=== PATIENT | female | born 1945 | race Caucasian/White ===

== ENCOUNTER 2019-09-19 12:58 | Outpatient (CLI) | payer MEDICARE, SELFPAY ==
--- NOTE | 2019-09-19 13:20 | ECG_ITS ---
Measurements Intervals [place] Rate: 88 P: 54 MA: 144 QRS: 7 QRSD: 85 T: 35 QT: 335 QTc: 405 Interpretive Statements SINUS RHYTHM DELAYED PRECORDIAL R/S TRANSITION BASELINE ARTIFACT- III BORDERLINE ECG Electronically Signed On 09-19-2019 13:49:44 TRAIN RESERVATION CLERK by Yifan Madison D.O.
--- NOTE | 2019-09-21 23:43 | WPDPFTINT ---
PFT Interpretation PFT Interpretation: DOS: 09/19/2019 REQUESTING:Dr. Gusman REASON FOR TESTING: Dyspnea PULMONARY FUNCTION TESTS Results are reproducible. Spirometry: Normal FEV1, mild decreased in FVC 75% predicted, normal FEV1%. No bronchodilator was given. Lung volumes: Mild restrictive pattern with decrease in TLC 72% predeicted. No iar trapping. Increased airway resistance, Raw 189%. Diffusion: DLCO mildly decreased 63%. Flow volume loop: Late peak of the expiratory limb which may be effort dependent. IMPRESSION: Mild restrictive impairment, mild decrease in FVC which may be due to restriction. No airflow obstruction. No bronchodilator was given. Mild increase in airway resistance. Mild diffusion impairment. Restriction and diffusion impairment can be seen in interstitial lung disease or pneumonitis. Clinical correlation is advised. Deena Bravo MD
== END 2019-09-19 12:59 | disposition home or self-care (01) ==
PROVIDERS: PCP Internal Medicine; Visit Provider Internal Medicine
DX: R06.09 Other forms of dyspnea (principal); R94.2 Abnormal results of pulmonary function studies; R94.31 Abnormal electrocardiogram [ECG] [EKG]
CPT/HCPCS: 93005; 94375; 94726; 94729

== ENCOUNTER 2020-02-04 10:48 | Observation (INO) | payer MEDICARE, SELFPAY ==
[2020-02-04] VITALS (8 sets, daily range): BP systolic 136–192; BP diastolic 74–90; PULSE 51–119; RESP 14–23; TEMP 36.1–36.8; O2SAT 97–100; BMI 28.5
--- NOTE | ~2020-02-04 | CT_ITS ---
EXAMINATION: CTA brain carotid DATE: 02/04/2020 12:14 INDICATION: Diplopia and dizziness TECHNIQUE: Computed tomographic angiography (CTA) of the head was performed without and with 100 mL O mnipaque-350 intravenous contrast. CTA of the neck was performed with intravenous contrast. The dose- length product was 1697.58 mGy-cm. Maximum intensity projection and volume rendered 3D-reconstruction s were created by the technologist on a separate workstation. Automated exposure control and iterativ e reconstruction technique were employed. COMPARISON: 09/15/2011 FINDINGS: There is no acute intraparenchymal hemorrhage. No evidence of mass lesion. No evidence of acute infar ction. There is mild periventricular and subcortical hypodensity probably related to small vessel isc hemic disease. There is mild prominence of the sulci and ventricles related to cerebral atrophy. Intr acranial calcified cerebral atherosclerosis is noted. There are no extra-axial collections. There is no mass effect or midline shift. The orbits and soft tissues are unremarkable. The visualized sinuse s and mastoid air cells are well aerated. The right vertebral artery is diminutive. There is no significant stenosis of the basilar artery or p osterior cerebral arteries. There is no significant stenosis of the intracranial internal carotid art eries or the anterior or middle cerebral arteries. The anterior communicating artery and posterior co mmunicating arteries are normal. There is no aneurysm. NECK CTA: The thyroid gland is unremarkable. The submandibular and parotid glands are symmetric. Ther e is no lymphadenopathy. There are no masses identified. The airway is unremarkable. There are no oss eous abnormalities. The orbits are unremarkable. The superior mediastinum is unremarkable. Areas of a ir-trapping in the visualized lung apices may reflect small airways or small vessel disease. There is mild cervical spondylosis. There is 0% stenosis of the proximal right internal carotid artery relative to normal distal artery l umen diameter (NASCET criteria). There is 0% stenosis of the proximal left internal carotid artery re lative to normal distal artery lumen diameter. IMPRESSION: 1. No acute intracranial abnormality. Normal head CTA. 2. 0% stenosis of the proximal right internal carotid artery relative to normal distal artery lumen d iameter (NASCET criteria). 3. 0% stenosis of the proximal left internal carotid artery relative to normal distal artery lumen di ameter. Reviewed, dictated and finalized at location A. IMPRESSION: 1. No acute intracranial abnormality. Normal head CTA. 2. 0% stenosis of the proximal right internal carotid artery relative to normal distal artery lumen diameter (NASCET criteria). 3. 0% stenosis of the proximal left internal carotid artery relative to normal distal artery lumen diameter.
--- NOTE | ~2020-02-04 | CT_ITS ---
EXAMINATION: CT brain wo con DATE: 02/04/2020 18:53 INDICATION: Dizziness. TECHNIQUE: Computed tomography (CT) of the head was performed without intravenous contrast. The mA wa s adjusted according to patient size. Iterative reconstruction technique was employed. The dose-lengt h product was 605.33 mGy-cm. COMPARISON: Head CTA 02/04/2020 FINDINGS: There are scattered areas of low attenuation in the cerebral white matter. There is no int racranial hemorrhage, acute infarction, or abnormal intracranial mass lesion. The ventricles are norm al in size. There are likely changes of ocular lens replacement surgeries. There is mild mucosal thic kening in right ethmoid sinus. There is a small right mastoid effusion. IMPRESSION: 1. Mild nonspecific cerebral white matter disease, which likely represents chronic small vessel ische froilan disease. Reviewed, dictated and finalized at location A. IMPRESSION: 1. 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
--- NOTE | ~2020-02-04 | MR_ITS ---
EXAMINATION: MR brain/brain stem wo/w con DATE: 02/05/2020 07:54 INDICATION: Diplopia. Dizziness. Stroke. TECHNIQUE: Magnetic resonance imaging (MRI) of the brain and brainstem was performed without and with 14 mL MultiHance intravenous contrast. Sequences included sagittal and axial T1-weighted FSE, axial diffusion-weighted FS EPI, axial T2*-weighted GRE, axial T2-weighted FLAIR Propeller, and axial T2-we ighted Propeller. Postcontrast sequences included axial and coronal T1-weighted FSE. Apparent diffusi on coefficient (ADC) maps were created. COMPARISON: Head CT 02/04/2020 FINDINGS: There are scattered areas of nonspecific increased T2-weighted signal intensity in the cere bral white matter and jc. There is no intracranial hemorrhage, acute infarction, or abnormal intrac ranial mass lesion. The ventricles are normal in size. There are likely changes of ocular lens replac ement surgeries. The paranasal sinuses are clear. There is a small right mastoid effusion. IMPRESSION: 1. Mild nonspecific cerebral white matter disease and pontine disease, which likely represents chroni c small vessel ischemic disease. Reviewed, dictated and finalized at location A. IMPRESSION: 1. Mild nonspecific cerebral white matter disease and pontine disease, which jesus reid represents chronic small vessel ischemic disease.
[2020-02-04 11:37] LABS: Basophils Absolute Auto 0.1 K/mm3 (0.0-0.1); Basophils Percent Auto 1.2 % (0.2-1.2); Eosinophils Absolute Auto 0.2 K/mm3 (0-0.3); Eosinophils Percent Auto 3.9 % (0-4.4); Hemoglobin 15.6 g/dL (12.0-15.0); Immature Granulocyte Absolute 0.01 K/mm3 (0.00-0.031); Immature Granulocyte Percent A 0.2 % (0-0.5); Lymphocytes Absolute Auto 1.94 K/mm3 (0.9-3.2); Mean Corpuscular HGB Conc 34.7 g/dl (32-36); Mean Corpuscular Hemoglobin 32.6 pg (26-34); Mean Corpuscular Volume 94.1 fl (80-100); Monocytes Absolute Auto 0.9 K/mm3 (0.1-0.6); Monocytes Percent Auto 15.6 % (2.6-8.5); Neutrophils Absolute Auto 2.7 K/mm3 (1.3-6.7); Neutrophils Percent Auto 46.1 % (45.5-73.1); Platelet Count Result 332 k/mm3 (150-375); Red Blood Count 4.78 M/mm3 (4.2-5.4); Red Cell Distribution Width 12.2 % (11.5-14.5); White Blood Count 5.9 K/mm3 (4.5-10.0)
--- NOTE | 2020-02-04 11:38 | ECG_ITS ---
Measurements Intervals [place] Rate: 85 P: 57 [place]: 148 QRS: 9 QRSD: 85 T: 35 QT: 355 QTc: 423 Interpretive Statements SINUS RHYTHM ATRIAL PREMATURE COMPLEX POSSIBLE LEFT ATRIAL ENLARGEMENT BORDERLINE ECG Electronically Signed On 02-04-2020 14:11:58 CDT by Yifan Madison D.O.
--- NOTE | 2020-02-04 11:39 | ED.NEUROSD ---
HPI - Neuro Symptoms/Deficit General Chief Complaint: Neuro Symptoms/Deficit Stated Complaint: double vision since last night Time Seen by Provider: 02/04/20 11:24 Source: patient Mode of arrival: wheelchair Limitations: no limitations History of Present Illness HPI Narrative: Patient is a 74-year-old female who presents for evaluation of double vision, dizziness and difficulty walking. Patient reports she has had a headache over the past 5 days, the dizziness and the vision changes began yesterday. Patient states she had no thunderclap sensation, headache was dull and aching in nature, and suddenly the patient stated her vision became very blurry yesterday. She states she is seeing double of most objects. She denies any numbness in her face, difficulty with speech, arm weakness or numbness, leg weakness or numbness. She reports she is having difficulty walking due to her vision changes. No floaters or flashers. No recent trauma. Patient has no history of stroke. She does not take any anticoagulation. Related Data Home Medications Medication Instructions Recorded Confirmed aspirin 81 mg tablet,delayed 81 mg PO DAILY 08/15/19 release cholecalciferol (vitamin D3) 25 1,000 unit PO DAILY 08/15/19 mcg (1,000 unit) tablet estradiol-norethindrone acet 1 1 tablet PO DAILY 08/15/19 mg-0.5 mg tablet lisinopril 20 mg tablet 20 mg PO DAILY 08/15/19 loratadine 10 mg tablet 10 mg PO DAILY 08/15/19 mometasone 0.1 % topical cream 1 applic TOPICAL DAILY 08/15/19 hdjjasms-narvru-XS-thonzonm 3.3 4 drop EACH EAR QID 08/15/19 mg-3 mg-10 mg-0.5 mg/mL ear drops,susp nystatin 100,000 unit/gram topical 1 applic TOPICAL BID 08/15/19 powder omega cap PO 08/15/19 6-irgL-nngdmabw-azk-rgaow-vmh-lipase 40 mg-60 mg-10 unit capsule pantoprazole 40 mg tablet,delayed 40 mg PO QAM 08/15/19 release sucralfate 1 gram tablet PO 08/15/19 thiamine HCl (vitamin B1) 250 mg 250 mg PO DAILY 08/15/19 tablet tramadol 50 mg tablet 50 mg PO Q6H PRN 01/27/20 vitamin B complex 1 tablet PO DAILY 08/15/19 Allergies Allergy/AdvReac Type Severity Reaction Status Date / Time allopurinol Allergy Unknown Unknown Verified 02/04/20 11:49 carbamazepine Allergy Unknown Unknown Verified 02/04/20 11:49 cephalexin Allergy Unknown Unknown Verified 02/04/20 11:49 clotrimazole Allergy Unknown Unknown Verified 02/04/20 11:49 codeine Allergy Unknown Unknown Verified 02/04/20 11:49 doxycycline Allergy Unknown Unknown Verified 02/04/20 11:49 febuxostat Allergy Unknown Unknown Verified 02/04/20 11:49 loracarbef Allergy Unknown Unknown Verified 02/04/20 11:49 meperidine Allergy Unknown Unknown Verified 02/04/20 11:49 Penicillins Allergy Unknown Unknown Verified 02/04/20 11:49 Sulfa (Sulfonamide Allergy Unknown Unknown Verified 02/04/20 11:49 Antibiotics) tetracycline Allergy Unknown Unknown Verified 02/04/20 11:49 Tetracyclines Allergy Unknown Unknown Verified 02/04/20 11:49 Review of Systems Review of Systems: Narrative: CONSTITUTIONAL: Denies fever HEENT: Reports double vision, no tinnitus CARDIOVASCULAR: Denies chest pain RESPIRATORY: Denies cough or dyspnea. GASTROINTESTINAL: Denies abdominal pain SKIN: Denies rash MUSCULOSKELETAL: Denies back pain NEUROLOGIC: Reports mild headache, denies numbness or weakness, reports difficulty with ambulation PMFSH Family History Family History Mother Patient's mother is Cerebrovascular accident Father Patient's father is Sibling Hypertension Family history of diabetes mellitus in first degree relative Social History Social History Smoking status: Former smoker Second hand tobacco smoke exposure: No Smoking end date: 07/20/77 Alcohol intake: current Exam Narrative: Exam Narrative: GENERAL: Awake, alert, conversant HEAD: Normocephalic, at
[2020-02-04 11:47] LABS: INR 1.1; Prothrombin Time 13.4 Seconds (11.1-14.7)
[2020-02-04 11:48] LABS: Blood Urea Nitrogen 15 mg/dL (7-17); Calcium 9.1 mg/dL (8.4-10.2); Carbon Dioxide 26 mmol/L (22-30); Chloride 96 mmol/L (98-107); Estimated CRCL calculation 42 ml/min; Estimated Glomerular Filt Rate > 60; Glucose 121 mg/dL (65-105); Partial Thromboplastin Time 26.3 SECONDS (22.3-36.8); Potassium 4.4 mmol/L (3.4-5.0); Sodium 130 mmol/L (137-145)
[2020-02-04 12:00] LABS: Troponin I < 0.012 ng/mL (0.000-0.034)
[2020-02-04] MEDS: SODIUM CHLORIDE 0.9% IV 500 ML 999 ML IV CONT (13:06)
--- NOTE | 2020-02-04 14:03 | ADMGEN ---
This patient, Marisabel Beck, was admitted to 2 Medical Room 248-. Patient/family oriented to hospital policies and general routines including ID bracelet, bed and alarms, visiting hours, pain management, procedures, bathroom and other care routines, personal items, smoking policy, room service/diet, and visiting hours. Valuables list has been completed. Information on how to activate the Rapid Response Team has been discussed. Patient/Family are encouraged to report perceived risks to care and to ask questions if they do not understand what they are told or what they should do.
[2020-02-04] MEDS: clonazePAM 0.5 MG TABLET PO (16:30)
--- NOTE | 2020-02-04 16:34 | PC.NURSE ---
Patient c/o worsening blurred vision and double vision. States it seems more blurred than previously. Called Janie Chaney POLISHER HAND and notified her of patient complaints. She states she will come to assess the patient shortly.
--- NOTE | 2020-02-04 17:42 | PM.IMHP ---
H&P: HPI History of Present Illness Chief complaint: dizziness,vision changes Narrative: Marisabel Beck is a 74 year old female who has a history of having high anxiety. She has had no previous history is CVA. The patient stated that she has had a terrible headache for 5 days. Patient started having double vision last night.Was having some what she called dizziness but she stated this more like difficulty walking because of the blurred vision or double vision. She did have any focal weakness or any other symptoms she has no difficulty swallowing she is able to move all extremities. Her speech is clear. The patient stated that the last time she had her eyes examined was back in July. She stated that for several months she had high pressure in her eyes but has been stable so she is down to once a year getting her eyes checked. The patient did not have any numbness or tingling in her face no focal weakness. She was having difficulty walking due to the double vision. The patient tells me that she feels like her double vision is getting worse. Her double vision is making her feel ill. The patient had a CTA of her brain was normal CT a. She had 0% stenosis of the proximal right internal and left internal carotid arteries. Patient stated that she feels she is getting worse. Neurology has been consulted. She takes a daily aspirin but did not take it today. And IV fluids. Patient was very anxious when she came to the floor so I ordered her her home clonazepam. The daughters at the bedside. I have a call out to Neurology to speak with them. Date of service 02/04/2020 Review of Systems Review of Systems: All systems reviewed & are unremarkable except as noted in HPI and below Constitutional: Constitutional: Reports as per HPI and Reports no additional constitutional complaints Eyes: Eyes: Reports as per HPI and Reports no additional eye complaints ENT: Reports system reviewed and no additional complaints, except as documented and Reports Normal hearing present Cardiovascular: Cardiovascular: Reports no additional cardiovascular complaints Respiratory: Respiratory: Reports no additional respiratory complaints and Reports no additional respiratory complaints Gastrointestinal: Gastrointestinal: Reports as per HPI and Reports no additional gastrointestinal complaints Musculoskeletal: Musculoskeletal: Reports no additional musculoskeletal complaints Integumentary/Breasts: Skin/Breast: Reports system reviewed and no additional complaints, except as docu and Reports as per HPI Neurologic: Reports system reviewed and no additional complaints, except as documented, Reports as per HPI and Reports Normal hearing present Psychiatric: Psychiatric: Reports no additional psychiatric complaints and Reports as per HPI Endocrine: Endocrine: Reports no additional endocrine complaints Hematologic/Lymphatic: Hematologic/Lymphatic: Reports no additional hematologic/lymphatic complaints Allergic/Immunologic: Allergic/Immunologic: Reports no additional allergic/immunologic complaints [facility] Past Medical History Medical History (Updated 02/04/20 @ 17:54 by Janie Chaney NP) Anxiety disorder, unspecified Chronic GERD Diverticular disease ROMEO (dyspnea on exertion) Elevated LFTs Essential (primary) hypertension Gastro-esophageal reflux disease without esophagitis Gout, unspecified Allergic to most gout medicine and can only take steroids. Hyperglycemia Other fatigue Pure hypercholesterolemia, unspecified PVC's (premature ventricular contractions) Surgical History Surgical History (Updated 02/04/20 @ 17:54 by Janie Chaney NP) H/O cataract extraction Bilaterally H/O: hysterectomy Total vaginal hysterectomy History of removal of pigmented skin lesion Hx of cholecystectomy S/P tonsillectomy and adenoidectomy Family History Family History (Updated 02/04/20 @ 17:56 by Janie Chaney NP) Mother Patient's mother is Cereb
[2020-02-04] MEDS: ASPIRIN 81 MG ENTERIC TABLET PO (19:33)
[2020-02-04] MEDS: lisinopriL 10 MG TABLET 30 MG PO (21:32)
[2020-02-04] MEDS: CHOLECALCIFEROL 1,000 UNIT TABLET 1000 UNITS PO (21:32)
[2020-02-04] MEDS: clonazePAM 0.5 MG TABLET 1 MG PO (21:33)
[2020-02-05] VITALS (9 sets, daily range): BP systolic 120–136; BP diastolic 59–66; PULSE 76–102; RESP 16; TEMP 36–36.4; O2SAT 94–98
[2020-02-05] MEDS: ACETAMINOPHEN 325 MG TABLET 650 MG PO (02:53)
[2020-02-05 05:06] LABS: Basophils Absolute Auto 0.1 K/mm3 (0.0-0.1); Basophils Percent Auto 1.2 % (0.2-1.2); Eosinophils Absolute Auto 0.2 K/mm3 (0-0.3); Eosinophils Percent Auto 3.4 % (0-4.4); Hematocrit 39.7 % (37.0-47.0); Hemoglobin 13.9 g/dL (12.0-15.0); Immature Granulocyte Absolute 0.01 K/mm3 (0.00-0.031); Immature Granulocyte Percent A 0.2 % (0-0.5); Lymphocytes Absolute Auto 1.75 K/mm3 (0.9-3.2); Lymphocytes Percent Auto 26.9 % (18.3-44.2); Mean Corpuscular Volume 91.5 fl (80-100); Mean Platelet Volume 8.9 fl (7.4-10.4); Monocytes Absolute Auto 1.1 K/mm3 (0.1-0.6); Monocytes Percent Auto 17.4 % (2.6-8.5); Neutrophils Absolute Auto 3.3 K/mm3 (1.3-6.7); Neutrophils Percent Auto 50.9 % (45.5-73.1); Platelet Count Result 351 k/mm3 (150-375); Red Blood Count 4.34 M/mm3 (4.2-5.4); Red Cell Distribution Width 11.8 % (11.5-14.5); White Blood Count 6.5 K/mm3 (4.5-10.0)
[2020-02-05 05:15] LABS: Prothrombin Time 13.3 Seconds (11.1-14.7)
[2020-02-05 05:38] LABS: Alanine Aminotransferase 40 U/L (4-35); Albumin Level 3.8 g/dL (3.5-5.1); Alkaline Phosphatase 73 U/L (38-126); Aspartate Amino Transferase 38 U/L (14-36); Bilirubin,Total 0.4 mg/dL (0.2-1.3); Blood Urea Nitrogen 14 mg/dL (7-17); CRP 1.1 mg/dL (<1.0); Calcium 8.8 mg/dL (8.4-10.2); Carbon Dioxide 25 mmol/L (22-30); Chloride 98 mmol/L (98-107); Estimated CRCL calculation 43 ml/min; Estimated Glomerular Filt Rate > 60; Glucose 116 mg/dL (65-105); Magnesium 2.1 mg/dL (1.6-2.3); Potassium 4.2 mmol/L (3.4-5.0); Sodium 131 mmol/L (137-145)
[2020-02-05 07:37] LABS: Free T4 Free Thyroxine Reflex 1.13 ng/dL (0.78-2.19)
[2020-02-05 08:56] LABS: Total Triiodothyronine (T3) 1.47 NG/ML (0.97-1.69)
--- NOTE | 2020-02-05 11:23 | PC.NURSE ---
Patient resting in bed. Continues to wear eye gauze to patch left eye. States with patch on, she can see one of everything but without it she has blurred vision and double vision. She feels it is unchanged since yesterday. Patient went down for MRI early this morning. Daughter Kaci is here at bedside. Dr. Chu to see patient in consultation today. Ambulated patient to bathroom several times. Gait steadier today - with eye patch in place. Patient denies dizziness or nausea. No other neurological deficits noted.
--- NOTE | 2020-02-05 12:00 | PC.NURSE ---
Family and patient voicing concern over MRI results and neurology consult and when MRI will be read and neurologist will be here. Called MRI - they state the radiologist who reads the neuro MRIs will be here at 1500 today but films are available for Dr. Chu to review. Called Dr. Chu and notified him of same. He states he will review the films and be in shortly to see patient. Relayed all information to family and patient.
--- NOTE | 2020-02-05 14:33 | PM.IMPN ---
Progress Note: A&P Assessment and Plan (1) Diplopia: Code(s): H53.2 - Diplopia Status: Acute Assessment and Plan: MRI is pending, CTA is negative, could all be related to blood sugar with with lateral rectus muscle palsy, and will check A1c No evidence of any infection or rashes (2) Dizziness: Code(s): R42 - Dizziness and giddiness Status: Acute Assessment and Plan: Dizziness secondary primarily to the double vision incurred with the 6 nerve palsy. Relieved when affected eye is patched (3) Diverticular disease: Code(s): K57.90 - Diverticulosis of intestine, part unspecified, without perforation or abscess without bleeding Status: Chronic Assessment and Plan: Patient is not currently having any problems at this time. But she has chronic diarrhea. She has seen Dr. holguin in the past. (4) Anxiety disorder, unspecified: Code(s): F41.9 - Anxiety disorder, unspecified Status: Acute Assessment and Plan: The patient is on high doses of clonazepam but this is what she takes at home. She is a very anxious person. She will need to take clonazepam prior to her MRI. I talked about Ativan but she states that she is so sensitive to medication that she prefers to keep the clonazepam. (5) Gout, unspecified: Code(s): M10.9 - Gout, unspecified Status: Acute Assessment and Plan: The patient has multiple allergies to multiple medications for gout in which she has a flare-up she is prescribed prednisone but is not having a current flare-up at this time. (6) Elevated LFTs: Code(s): R94.5 - Abnormal results of liver function studies Status: Acute Assessment and Plan: Has had mild LFT elevation for at least 2 years per previous labs. Check hepatitis profile (7) Hyperglycemia: Code(s): R73.9 - Hyperglycemia, unspecified Status: Acute Assessment and Plan: Blood sugar been slightly elevated for couple years also. Will check A1c Increase activity Subjective Date/time seen: 02/05/20 14:33 Interval history: Date of visit 02/04. 74-year-old hypertensive white female admitted with double vision and trouble with balance. Still having some double vision today but better when patch the right eye. No actual balance issues just problem with a double vision. Exam Narrative: Exam Narrative: Blood pressure 126/60 pulse is 86 and regular saturating 94% on room air afebrile Pupils equal reactive to light sclera anicteric Mouth normal Lungs clear CV regular rate rhythm no murmurs Abdomen is soft nontender Extremities without edema distal pulses are 2+ Neuro Finger to nose is intact, [id number] is intact. Flexor responses are downgoing, cranial nerve 6, LR 6 affected because cannot track right eye past midline to the right Integument no rashes or open areas Objective Data Vital Signs Vital Signs: Vital Signs - 24 hr 02/04/20 15:45 02/04/20 16:00 02/04/20 20:00 Temperature Pulse Rate 105 H 86 Respiratory Rate Blood Pressure 148/80 H Pulse Oximetry 02/04/20 21:55 02/05/20 00:00 02/05/20 04:00 Temperature 36.6 C Pulse Rate 51 L 102 H 96 Respiratory Rate 16 Blood Pressure 162/74 H Pulse Oximetry 98 02/05/20 05:42 02/05/20 08:00 02/05/20 12:00 Temperature 36.3 C L Pulse Rate 76 86 84 Respiratory Rate 16 Blood Pressure 120/66 Pulse Oximetry 97 02/05/20 14:00 Temperature 36.0 C L Pulse Rate 87 Respiratory Rate 16 Blood Pressure 126/59 L Pulse Oximetry 94 Intake/Output Intake/Output: Intake & Output 02/02/20 02/03/20 02/04/20 02/05/20 23:59 23:59 23:59 23:59 Intake Total 800 1070 Output Total 450 1600 Balance 350 -530 Meds/Results Medications: Active Medications Generic Name Dose Route Start Last Admin Trade Name Kari PRN Reason Stop Dose Admin Acetaminophen 650 mg 02/04/20 13:02 02/05/20 02:53 Tylenol Tablet PO 650 mg Q4H PRN
--- NOTE | 2020-02-05 14:55 | PCOTNOTE ---
Spoke with RN, family, and patient and at this time she is functioning at baseline except for double vision. No OT/PT evaluation recommended at this time. MD notified and agrees.
--- NOTE | 2020-02-05 15:02 | PCPTNOTE ---
PT/OT orders received...seen first by OT, and patient was INDEP with bed mob, transfers, and gait...neither patient nor family desire skilled Therapy... informed and agrees to d/c PT/OT
--- NOTE | 2020-02-05 15:07 | PC.NURSE ---
Called MRI results to Dr. Chu. Dr. Chu states patient/family can be told MRI is negative and he will see patient again tomorrow regarding followup and any further testing needed. Called MRI results to Dr. Lawson. He states he will come down and speak to the patient and her daughter about further tests to be done and plan of care. Patient and daughter notified of plan and daughter will stay until patient is seen by Dr. Lawson again this afternoon.
--- NOTE | 2020-02-05 17:56 | CONS_ITS ---
DATE OF CONSULTATION: Patient of Dr. Sarah Katz. A 74-year-old right-handed female has been admitted to [facility] through the emergency room for the complaint of dizziness with the visual changes. The patient started having trouble in vision described as double along with the dizziness in addition to the trouble in walking, but no difficulties in swallowing. Able to move all the 4 extremities. She reported that she has increased pressure in her eyes and she has had the eyes examined previously, but she gave no history of associated tingling or numbness or weakness of 1 side or other side though she was having difficulties in walking with a double vision. Initially in the emergency room, CTA was done of the brain which was negative with 0% stenosis of proximal right internal and left internal carotid artery. In the past, the patient had ongoing history of anxiety, chronic GERD, diverticular disease, dyspnea on exertion, elevated liver enzymes, hypertension, gout, hyperglycemia, generalized fatigue, hypercholesterolemia, and PVCs. She has undergone cataract extraction, hysterectomy, removal of pigmented skin lesion, cholecystectomy, tonsillectomy and adenoidectomy. She is a full code status. SOCIAL HISTORY: Had smoked for 15 years, 7.5 zero-pack years, but former at this particular time, and drank alcohol at least 14 per week. MEDICATIONS: She is on aspirin, cholecalciferol, lisinopril, loratadine, clonazepam. ALLERGIES: SHE IS ALLERGIC TO MULTIPLE MEDICATIONS, WHICH WERE MENTIONED LORACARBEF, MEPERIDINE, CARBAMAZEPINE, CODEINE, PENICILLIN, ALLOPURINOL, CEPHALEXIN, CLOTRIMAZOLE, DOXYCYCLINE, FEBUXOSTAT, SULFA, AND TETRACYCLINES. PHYSICAL EXAMINATION: VITAL SIGNS: Evaluation up until now has revealed her to be afebrile with temp of 36.1, pulse 93, respirations 14, blood pressure 192/74. GENERAL: General physical examination is normal. HEENT: Head normocephalic with no cranial bruit. Ear, nose, throat examination normal. NECK: Supple with no cervical bruit. No thyromegaly. No lymphadenopathy. HEART: Regular. LUNGS: Clear with no murmur. ABDOMEN: Soft with normal bowel sounds. Not tender. NEUROLOGICAL: She is awake, alert. Pupils round, regular. [place] of vision full. Extraocular movements full. Face symmetrical. Tongue midline. Motor examination revealed her to have no drift of 1 side or other side. The only thing noted initially on examination was complaint of diplopia with nystagmus bilaterally in the left lateral gaze and vertical gaze. CT scan of the head negative. CTA is negative. MRI of the brain awaited. At this stage, the patient is receiving aspirin 81 mg daily, lisinopril 30 mg at bedtime, vitamin D 1000 units in addition to the p.r.n. medication of clonazepam and Zofran. PLAN: Plan is to get the MRI and further recommendation accordingly to rule out the possibility of brainstem dysfunction. SHAILESH BARAKAT M.D. GAUGER DELIVERY GAUGER DELIVERY D I MT: [place]
--- NOTE | 2020-02-05 18:34 | PC.NURSE ---
Ambulated patient in [place]. Eye patch has been switched to right eye. Patient is steady on her feet. Ambulates without difficulty. Ambulated around entire floor without difficulty. Standby assist and patient was independent with ambulation. Fall risk evaluated. Standard fall precautions initiated.
[2020-02-05] MEDS: lisinopriL 10 MG TABLET 30 MG PO (20:59)
[2020-02-05] MEDS: clonazePAM 0.5 MG TABLET 1 MG PO (20:59)
[2020-02-05] MEDS: CHOLECALCIFEROL 1,000 UNIT TABLET 1000 UNITS PO (20:59)
[2020-02-06] VITALS: PULSE 87
[2020-02-06 04:00] VITALS: PULSE 79
[2020-02-06 05:27] LABS: Alanine Aminotransferase 39 U/L (4-35); Albumin Level 3.6 g/dL (3.5-5.1); Alkaline Phosphatase 65 U/L (38-126); Aspartate Amino Transferase 34 U/L (14-36); Bilirubin,Total 0.4 mg/dL (0.2-1.3); Blood Urea Nitrogen 15 mg/dL (7-17); Calcium 8.8 mg/dL (8.4-10.2); Carbon Dioxide 25 mmol/L (22-30); Chloride 101 mmol/L (98-107); Estimated CRCL calculation 43 ml/min; Estimated Glomerular Filt Rate > 60; Glucose 115 mg/dL (65-105); Potassium 3.9 mmol/L (3.4-5.0); Sodium 132 mmol/L (137-145)
[2020-02-06 05:29] LABS: Hemoglobin A1C 5.6 % (<5.7)
[2020-02-06 05:49] LABS: Erythrocyte Sedimentation Rate 30 mm/hr (0-20); T4 Thyroxine 9.45 ug/dL (5.53-11.0)
[2020-02-06 06:00] VITALS: BP 143/72; PULSE 87; RESP 16; TEMP 36.1; O2SAT 97
[2020-02-06 06:05] LABS: Hepatitis B Surface Antigen Negative (Negative)
[2020-02-06 06:10] LABS: HAV RESULT Negative (Negative); Hepatitis B Core IgM Result Negative (Negative)
[2020-02-06 06:22] LABS: Hepatitis C Virus Antibody Negative (Negative)
[2020-02-06] MEDS: ACETAMINOPHEN 325 MG TABLET 650 MG PO (07:30)
[2020-02-06 08:00] VITALS: PULSE 98
--- NOTE | 2020-02-06 10:43 | WPDNEUROPN ---
Progress Note: A&P Assessment and Plan (1) Diverticular disease: Code(s): K57.90 - Diverticulosis of intestine, part unspecified, without perforation or abscess without bleeding Status: Chronic (2) Diplopia: Code(s): H53.2 - Diplopia Status: Acute (3) Change in vision: Code(s): H53.9 - Unspecified visual disturbance Status: Acute (4) Dizziness: Code(s): R42 - Dizziness and giddiness Status: Acute (5) ROMEO (dyspnea on exertion): Code(s): R06.09 - Other forms of dyspnea Status: Acute (6) Pure hypercholesterolemia, unspecified: Code(s): E78.00 - Pure hypercholesterolemia, unspecified Status: Acute (7) Other fatigue: Code(s): R53.83 - Other fatigue Status: Acute (8) Elevated LFTs: Code(s): R94.5 - Abnormal results of liver function studies Status: Acute (9) Hyperglycemia: Code(s): R73.9 - Hyperglycemia, unspecified Status: Acute (10) Gout, unspecified: Code(s): M10.9 - Gout, unspecified Status: Acute (11) Gastro-esophageal reflux disease without esophagitis: Code(s): K21.9 - Gastro-esophageal reflux disease without esophagitis Status: Acute (12) Essential (primary) hypertension: Code(s): I10 - Essential (primary) hypertension Status: Acute (13) Anxiety disorder, unspecified: Code(s): F41.9 - Anxiety disorder, unspecified Status: Acute (14) PVC's (premature ventricular contractions): Code(s): I49.3 - Ventricular premature depolarization Status: Acute (15) Abducens (sixth) nerve palsy: Code(s): H49.20 - Sixth [abducent] nerve palsy, unspecified eye Status: Acute Additional Plan home with follow up Review of Systems Review of Systems: All systems reviewed & are unremarkable except as noted in HPI and below Exam Const: General: cooperative, healthy appearing, comfortable, no acute distress and awake Nutritional Appearance: average body habitus and well nourished Orientation/consciousness: patient oriented x3 HENMT: Head: normal to inspection General nose exam: No nasal discharge present Face and sinus: normal facial exam Mouth: Yes Normal oral and palatal mucosa present Eyes: General: appearance normal, both eyes and all related structures Visual Hidalgo: normal visual hidalgo by confrontation Alignment and Position: alignment abnormal and position abnormal Periorbital: periorbital findings normal Eyelids: eyelids normal Conjunctivae: conjunctivae normal Sclera: sclerae normal Cornea: corneas normal Pupils: Equal, round and reactive pupils present EOM: EOM abnormal Direct Ophthalmoscopy: normal light reflex Neck: Neck: full ROM and no lymphadenopathy Resp: Effort & Inspection: normal respiratory effort Auscultation: clear to auscultation bilaterally Cardio: Rate: regular rate Rhythm: regular rhythm GI: Auscultation: normal bowel sounds Skin: General skin exam: no rashes or lesions noted Neuro: General: patient oriented x3, gait normal, moves all extremities and no focal motor deficits Cranial nerves: Yes CN's II-XII intact bilaterally Cognition (Neuro): normal cognition Speech: normal speech Gait exam (Neuro): Normal gait present Motor exam (neuro): 5/5 motor strength present throughout Extrem: General: normal to inspection Psych: Appearance: grossly normal Objective Data Vital Signs Vital Signs: Vital Signs - 24 hr 02/05/20 12:00 02/05/20 14:00 02/05/20 16:00 Temperature 36.0 C L Pulse Rate 84 87 88 Respiratory Rate 16 Blood Pressure 126/59 L Pulse Oximetry 94 02/05/20 20:00 02/05/20 21:43 02/06/20 00:00 Temperature 36.4 C Pulse Rate 84 84 87 Respiratory Rate 16 16 Blood Pressure 136/62 Pulse Oximetry 98 98 02/06/20 04:00 02/06/20 06:00 Temperature 36.1 C L Pulse Rate 79 87 Respiratory Rate 16 Blood Pressure 143/72 H Pulse Oximetry 97 Intake/Output Int
--- NOTE | 2020-02-09 12:46 | PM.DS ---
DS: Admitting Diagnosis Admitting Diagnosis Admitting Diagnosis: Diplopia DS: Discharge Diagnosis Discharge Diagnosis (1) Diplopia: Code(s): H53.2 - Diplopia Status: Acute Assessment and Plan: MRI is negative, CTA is negative, A1c 5.6 with ESR only 30 prob idopathic 6th nerve palsy with LR muscle dysfuntion. Seen by neurology and patch applied to affected eye No evidence of any infection or rashes (2) Dizziness: Code(s): R42 - Dizziness and giddiness Status: Acute Assessment and Plan: Dizziness secondary primarily to the double vision incurred with the 6 nerve palsy. Relieved when affected eye is patched (3) Diverticular disease: Code(s): K57.90 - Diverticulosis of intestine, part unspecified, without perforation or abscess without bleeding Status: Chronic Assessment and Plan: Patient is not currently having any problems at this time. But she has chronic diarrhea. She has seen Dr. holguin in the past. (4) Anxiety disorder, unspecified: Code(s): F41.9 - Anxiety disorder, unspecified Status: Acute Assessment and Plan: The patient is on high doses of clonazepam but this is what she takes at home. She is a very anxious person. . (5) Gout, unspecified: Code(s): M10.9 - Gout, unspecified Status: Acute Assessment and Plan: The patient has multiple allergies to multiple medications for gout in which she has a flare-up she is prescribed prednisone but is not having a current flare-up at this time. (6) Elevated LFTs: Code(s): R94.5 - Abnormal results of liver function studies Status: Acute Assessment and Plan: Has had mild LFT elevation for at least 2 years per previous labs. hepatitis profile negative and probable fatty infiltration to be followed by primary (7) Hyperglycemia: Code(s): R73.9 - Hyperglycemia, unspecified Status: Acute Assessment and Plan: Blood sugar been slightly elevated for couple years also. but check A1c only 5.6 (8) Essential (primary) hypertension: Code(s): I10 - Essential (primary) hypertension Status: Acute Assessment and Plan: will controlled with the lisinopril and will continue the same DS: Summary Hospital Course Hospital Course: 74-year-old hypertensive female admitted with problems with balance and double vision. She had no cerebellar signs on examination and found to have a 6 nerve palsy. CTA and MRI were normal as was hemoglobin A1c 5.6 and sed rate of only 30. Patient was seen by Neurology and patch applied to right eye and much of symptomatology improved. she will follow-up with primary and Neurology activity as tolerated with no driving on discharge Time Spent with Patient Time attestation: Total time spent providing and/or coordinating discharge services:35 minutes Exam Narrative: Exam Narrative: Condition on discharge blood pressure 142/72 pulse 86 saturating 97% on room air pupils equal reactive to light but right high will track only minimal past the midline to the right otherwise cranial nerves are intact lungs clear CV regular rate rhythm no murmurs extremities without edema distal pulses 2+ neuro up and about ambulating without assistance and functioning well with right eye patched Discharge Plan Discharge Attending physician on discharge: Kyle Lawson Consulting providers: Mathew Chu ; Janie Chaney ; Mane Iqbal ; Yifan Madison ; Chu Anguiano V. Discharging Clinician: Kyle Lawson Patient Disposition: Home, Self-Care Activity: no driving and as tolerated Diet: low sodium Discharge Instructions: Per Dr. Chu continue to use the patch until you follow up with him in the office. Make sure that you are alternating the patch on each eye. Follow up with Dr. Chu in 6 weeks. Call office to make an appointment. Patient Instructions: Antibiotic Form, Pain Manageme
[2020-02-11 16:53] LABS: Acetylchol Receptor Binding Ab <0.30 nmol/L
== END 2020-02-06 11:52 | disposition home or self-care (01) ==
LOC: ANHED 13:02 → ANH2MED 13:43
PROVIDERS: Nurse Practitioner; Physician Assistant; Psychiatry & Neurology Neurology; Admitting Provider Internal Medicine; Emergency Provider Emergency Medicine; PCP Internal Medicine; Visit Provider Internal Medicine
DX: H53.2 Diplopia (principal); H53.9 Unspecified visual disturbance; R42 Dizziness and giddiness; H49.20 Sixth [abducent] nerve palsy, unspecified eye; R53.83 Other fatigue; K57.90 Diverticulosis of intestine, part unspecified, without perforation or abscess without bleeding; F41.9 Anxiety disorder, unspecified; M10.9 Gout, unspecified; R94.5 Abnormal results of liver function studies; R73.9 Hyperglycemia, unspecified; I10 Essential (primary) hypertension; K21.9 Gastro-esophageal reflux disease without esophagitis; E78.00 Pure hypercholesterolemia, unspecified; I49.3 Ventricular premature depolarization; Z79.82 Long term (current) use of aspirin; Z87.891 Personal history of nicotine dependence
CPT/HCPCS: 36415; 70450; 70496; 70498; 70553; 80048; 80053; 80074; 80076; 83036; 83735; 84238; 84436; 84439; 84443; 84480; 84484; 85025; 85610; 85652; 85730; 86038; 86140; 93005; 96360; 99285; A9270; A9577; G0378; J7040; Q9967

== ENCOUNTER 2020-03-11 08:31 | Emergency (ER) | payer MEDICARE, SELFPAY ==
--- NOTE | ~2020-03-11 | XR_ITS ---
EXAMINATION: XR chest 2V DATE: 03/11/2020 09:06 INDICATION: Upper chest pain with breathing TECHNIQUE: PA and lateral views of the chest are obtained. COMPARISON: 03/05/2013 FINDINGS: The lungs are free of acute opacities. There is no pleural effusion or pneumothorax. The ca rdiomediastinal silhouette is normal. There is mild thoracic spondylosis. Cholecystectomy clips are n oted in the right upper quadrant. IMPRESSION: 1. No acute cardiopulmonary abnormality. Reviewed, dictated and finalized at location A.
--- NOTE | ~2020-03-11 | CT_ITS ---
EXAMINATION: CT abdomen pelvis w con INDICATION: Right upper quadrant and back pain TECHNIQUE: Computed tomographic images of the abdomen and pelvis were obtained after the administrati on of 100 cc of Omnipaque 350 intravenous contrast. The dose-length product (DLP) was 642.54 mGy-cm. Automated exposure control and iterative reconstruction technique were employed. COMPARISON: 01/22/2018 FINDINGS: Minimal dependent atelectasis is present in the lung bases. The heart size is normal. A sta ble 5 mm nodule of the left lower lobe is consistent with old granulomatous disease. The gallbladder is surgically absent. Cysts of the liver measure up to 11 mm. The spleen, pancreas, and left adrenal gland are normal. There is unchanged 8 mm adenoma in the right adrenal gland. The kidneys are unremar kable. There is calcified atherosclerosis of the aorta and many of the other arteries. No pathologica lly enlarged abdominal or pelvic lymph nodes are identified. The appendix is normal. There is no free intraperitoneal gas or evidence of bowel obstruction. Colonic diverticulosis is present without evid ence of diverticulitis. There is mild lumbar spondylosis. IMPRESSION: 1. No CT correlate for the patient's symptoms. Reviewed, dictated and finalized at location A.
[2020-03-11 08:34] VITALS: BP 158/74; PULSE 93; RESP 18; TEMP 36.4; O2SAT 100
--- NOTE | 2020-03-11 08:40 | ED.BACK ---
HPI - Back Pain/Injury General Chief Complaint: Back Pain/Injury Stated Complaint: extreme pain in the top of my back Time Seen by Provider: 03/11/20 08:39 History of Present Illness HPI Narrative: Right upper back pain for he past week. Feels tight. Not better or worse with anything. Sometimes feels like it is related to abdominal bloating. She had a previous open cholecystectomy and it sounds like she may have adhesions secondary to that. No nausea, vomiting, diarrhea, constipation. Related Data Home Medications Medication Instructions Recorded Confirmed aspirin 81 mg tablet,delayed 81 mg PO Q48H 08/15/19 02/04/20 release cholecalciferol (vitamin D3) 25 1,000 unit PO DAILY 08/15/19 02/04/20 mcg (1,000 unit) tablet lisinopril 20 mg tablet 30 mg PO DAILY 08/15/19 02/04/20 loratadine 10 mg tablet 10 mg PO DAILY PRN 08/15/19 02/04/20 omeprazole magnesium 20 mg 20 mg PO DAILY 02/21/20 tablet,delayed release Allergies Allergy/AdvReac Type Severity Reaction Status Date / Time loracarbef Allergy Severe Swelling Verified 03/11/20 08:37 of Lip/Tongue/Throat meperidine Allergy Severe Anaphylaxis Verified 03/11/20 08:37 carbamazepine Allergy Intermediate Rash Verified 03/11/20 08:37 codeine Allergy Intermediate Palpitation Verified 03/11/20 08:37 s Penicillins Allergy Intermediate Hives Verified 03/11/20 08:37 allopurinol Allergy Mild Rash Verified 03/11/20 08:37 cephalexin Allergy Unknown Unknown Verified 03/11/20 08:37 clotrimazole Allergy Unknown Unknown Verified 03/11/20 08:37 doxycycline Allergy Unknown Unknown Verified 03/11/20 08:37 febuxostat Allergy Unknown Unknown Verified 03/11/20 08:37 Sulfa (Sulfonamide Allergy Unknown Hives Verified 03/11/20 08:37 Antibiotics) tetracycline Allergy Unknown Hives Verified 03/11/20 08:37 Review of Systems Review of Systems: All systems reviewed & are unremarkable except as noted in HPI and below Constitutional: Constitutional: Denies chills and Denies fever(s) Respiratory: Respiratory: Denies dyspnea Gastrointestinal: Gastrointestinal: Denies abdominal pain, Reports bloating and Denies nausea Genitourinary: Genitourinary: Denies hematuria and Denies dysuria [facility] Past Medical History Medical History Anxiety disorder, unspecified Chronic GERD Diverticular disease ROMEO (dyspnea on exertion) Elevated LFTs Essential (primary) hypertension Gastro-esophageal reflux disease without esophagitis Gout, unspecified Allergic to most gout medicine and can only take steroids. Hyperglycemia Other fatigue Pure hypercholesterolemia, unspecified PVC's (premature ventricular contractions) Surgical History Surgical History H/O cataract extraction Bilaterally H/O: hysterectomy Total vaginal hysterectomy History of removal of pigmented skin lesion Hx of cholecystectomy S/P tonsillectomy and adenoidectomy Family History Family History Mother Patient's mother is Cerebrovascular accident Hypertension Aneurysm Father Patient's father is Hypertension Sibling Hypertension 2 sisters Family history of diabetes mellitus in first degree relative 1 sister Social History Social History Social History: The patient is x3. She desires to be a full code. Her daughter Magaly Duckworth is her durable power trial attorney for healthcare. 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 The patient used to smoke and quit 1977. She denies using any marijuana or illicit drugs. But she does have a glass or 2 of wine every day. Smoking packs per day: 0.5 Smoking cigarettes per day: 10.0 Years smoked: 15 Smoking pack-years: 7.50 Smoking status: Former smoker To
[2020-03-11 09:33] LABS: Basophils Absolute Auto 0.1 K/mm3 (0.0-0.1); Basophils Percent Auto 1.1 % (0.2-1.2); Eosinophils Absolute Auto 0.2 K/mm3 (0-0.3); Eosinophils Percent Auto 3.9 % (0-4.4); Hematocrit 39.8 % (37.0-47.0); Hemoglobin 14.2 g/dL (12.0-15.0); Immature Granulocyte Absolute 0.02 K/mm3 (0.00-0.031); Immature Granulocyte Percent A 0.4 % (0-0.5); Lymphocytes Absolute Auto 1.79 K/mm3 (0.9-3.2); Lymphocytes Percent Auto 31.9 % (18.3-44.2); Mean Corpuscular HGB Conc 35.7 g/dl (32-36); Mean Corpuscular Hemoglobin 32.4 pg (26-34); Mean Corpuscular Volume 90.9 fl (80-100); Mean Platelet Volume 9.3 fl (7.4-10.4); Neutrophils Absolute Auto 2.5 K/mm3 (1.3-6.7); Neutrophils Percent Auto 44.7 % (45.5-73.1); Platelet Count Result 304 k/mm3 (150-375); Red Blood Count 4.38 M/mm3 (4.2-5.4); Red Cell Distribution Width 11.9 % (11.5-14.5); White Blood Count 5.6 K/mm3 (4.5-10.0)
[2020-03-11 09:40] LABS: Alanine Aminotransferase 38 U/L (4-35); Albumin Level 3.9 g/dL (3.5-5.1); Alkaline Phosphatase 71 U/L (38-126); Anion Gap 8 mmol/L (8-16); Aspartate Amino Transferase 39 U/L (14-36); Bilirubin,Total 0.5 mg/dL (0.2-1.3); Blood Urea Nitrogen 13 mg/dL (7-17); Calcium 8.8 mg/dL (8.4-10.2); Carbon Dioxide 25 mmol/L (22-30); Chloride 95 mmol/L (98-107); Estimated CRCL calculation 46 ml/min; Estimated Glomerular Filt Rate > 60; Glucose 101 mg/dL (65-105); Lipase 105 U/L (23-300); Potassium 4.1 mmol/L (3.4-5.0); Sodium 128 mmol/L (137-145)
--- NOTE | 2020-03-11 09:42 | PC.NURSE ---
Patient refused IV and valium at this time, Dr. Johnson notified. Patient states I want to wait to see and get something a little different that ins't a muscle relaxer.
[2020-03-11 10:03] LABS: Add Urine Microscopic? YES; Appearance Urine Clear (Clear); Bilirubin Urine Negative (Negative); Blood Urine Negative (Negative); Color Urine Straw (Yellow); Glucose Urine UA Negative (Negative); Ketones Urine Negative (Negative); Leukocyte Esterase Ur Trace LEU/UL (Negative); Mucus Urine Rare /lpf; Nitrate Urine Negative (Negative); Protein Urine Negative (Negative); RBC Urine 0-2 /hpf (0-2); Specific Grav Ur 1.008 (1.001-1.035); Squamous Epithelial Cell Urine Few /hpf (Few); Urobilinogen Urine Negative mg/dL (<2.0); WBC Urine 0-3 /hpf
[2020-03-11] MEDS: MORPHINE SULFATE 2 MG/ML INJ IV PUSH (11:38)
[2020-03-11 12:53] VITALS: BP 138/75; PULSE 78; RESP 16; O2SAT 100
== END 2020-03-11 12:54 | disposition home or self-care (01) ==
PROVIDERS: Emergency Provider Emergency Medicine; PCP Internal Medicine
DX: Z79.82 Long term (current) use of aspirin (principal); M54.6 Pain in thoracic spine; K21.9 Gastro-esophageal reflux disease without esophagitis; M10.9 Gout, unspecified; E78.00 Pure hypercholesterolemia, unspecified; Z98.42 Cataract extraction status, left eye; Z98.41 Cataract extraction status, right eye; Z87.891 Personal history of nicotine dependence
CPT/HCPCS: 36415; 71046; 74177; 80053; 81001; 83690; 85025; 96374; 99284; J2270; Q9967

== ENCOUNTER 2020-05-30 11:38 | Outpatient (CLI) | payer MEDICARE, SELFPAY ==
--- NOTE | ~2020-05-30 | MM_ITS ---
EXAMINATION: MM screening [facility] BI w gabriela HISTORY: Screening mammogram TECHNIQUE: Craniocaudal and mediolateral oblique 3-D tomosynthesis images were obtained and synthetic 2-D images were generated. CAD analysis was submitted and interpreted. COMPARISON: 04/14/2019, 03/03/2018, 02/24/2017 BREAST PARENCHYMAL COMPOSITION: There are scattered areas of fibroglandular density. FINDINGS: Scattered benign-appearing calcifications are present. There is no evidence of suspicious m ass, calcification, or architectural distortion to suggest malignancy in either breast. There has bee n no suspicious interval change. IMPRESSION: 1. No mammographic evidence of malignancy. 2. Recommend routine screening mammography in one year. BI-RADS Category 2: Benign finding(s). Reviewed, dictated and finalized at location A. [employer]
== END 2020-05-30 11:39 | disposition home or self-care (01) ==
PROVIDERS: PCP Internal Medicine; Visit Provider Internal Medicine
DX: Z12.31 Encounter for screening mammogram for malignant neoplasm of breast (principal)
CPT/HCPCS: 77063; 77067

== ENCOUNTER 2020-12-11 12:12 | Outpatient (CLI) | payer MEDICARE, SELFPAY ==
--- NOTE | ~2020-12-11 | XR_ITS ---
XR wrist LT min 3V 12/11/2020 12:30 Indication: Basal joint swelling and pain. No recent injury. Procedure: 4 views left wrist Comparison: No prior studies for comparison. Findings: There is moderate osteoarthritis of the first carpometacarpal joint. There is mild triscaph e osteoarthritis. Osteopenia. No acute fracture or traumatic malalignment. No scaphoid fracture. No s ignificant soft tissue abnormality. Impression: 1: Mild-moderate polyarticular osteoarthritis. Reviewed, dictated and finalized at location A. Impression: 1: Mild-moderate polyarticular osteoarthritis.
== END 2020-12-11 12:13 | disposition home or self-care (01) ==
LOC: ANHIMG 12:18
PROVIDERS: PCP Internal Medicine; Visit Provider Plastic Surgery
DX: M19.042 Primary osteoarthritis, left hand (principal); M19.032 Primary osteoarthritis, left wrist
CPT/HCPCS: 73110

== ENCOUNTER 2021-06-27 10:18 | Outpatient (CLI) | payer MEDICARE, SELFPAY ==
--- NOTE | ~2021-06-27 | MM_ITS ---
EXAMINATION: MM screening [facility] BI w gabriela HISTORY: Screening TECHNIQUE: Craniocaudal and mediolateral oblique 3-D tomosynthesis images were obtained and synthetic 2-D images were generated. CAD analysis was submitted and interpreted. COMPARISON: Comparison to multiple prior studies sequentially, with oldest reviewed study dated 01/15. BREAST PARENCHYMAL COMPOSITION: There are scattered areas of fibroglandular density. FINDINGS: There is no evidence of suspicious mass, calcification, or architectural distortion to sugg est malignancy in either breast. There has been no suspicious interval change. IMPRESSION: 1. No mammographic evidence of malignancy. 2. Recommend routine screening mammography in one year. BI-RADS Category 1: Negative Reviewed, dictated and finalized at location A. MAKER
== END 2021-06-27 10:19 | disposition home or self-care (01) ==
LOC: ANHIMG 10:19
PROVIDERS: PCP Internal Medicine; Visit Provider Obstetrics & Gynecology
DX: Z12.31 Encounter for screening mammogram for malignant neoplasm of breast (principal)
CPT/HCPCS: 77063; 77067

== ENCOUNTER 2021-11-07 10:46 | Emergency (ER) | payer MEDICARE, SELFPAY ==
--- NOTE | 2021-11-07 10:48 | ED.URI ---
HPI - URI/Sore Throat General Chief Complaint: Ear Stated Complaint: Ear pain, headache, neck neck Time Seen by Provider: 11/07/21 10:48 Source: patient and RN notes reviewed History of Present Illness HPI Narrative: Patient is a 76-year-old female who presents the urgent care with complaints of right ear pain radiating to the head and neck. Patient states that she also has some decreased hearing in the ear. Patient called her doctor on Thursday and has been using prescription eardrops without much relief. Patient states she is also been taking Claritin and Flonase. Patient states that now she feels that she has fullness in her head . Patient denies of any fevers, nausea, vomiting, shortness of breath or chest pain. No other acute complaints. Patient does appear to be severely anxious otherwise no acute distress noted. Patient aware of the plan of care. Some parts of this dictation were generated by voice recognition software and may contain typographical and/or grammatical inaccuracies. Related Data Home Medications Medication Instructions Recorded Confirmed aspirin 81 mg tablet,delayed 81 mg PO Q48H 08/15/19 07/04/21 release loratadine 10 mg tablet 10 mg PO DAILY PRN 08/15/19 07/04/21 omeprazole magnesium 20 mg 20 mg PO DAILY 02/21/20 07/04/21 tablet,delayed release cholecalciferol (vitamin D3) 25 2,000 unit PO DAILY tablet 07/03/21 07/04/21 mcg (1,000 unit) tablet Allergies Allergy/AdvReac Type Severity Reaction Status Date / Time loracarbef Allergy Severe Swelling Verified 11/07/21 10:52 of Lip/Tongue/Throat meperidine Allergy Severe Anaphylaxis Verified 11/07/21 10:52 carbamazepine Allergy Intermediate Rash Verified 11/07/21 10:52 codeine Allergy Intermediate Palpitation Verified 11/07/21 10:52 s Penicillins Allergy Intermediate Hives Verified 11/07/21 10:52 allopurinol Allergy Mild Rash Verified 11/07/21 10:52 cephalexin Allergy Unknown Unknown Verified 11/07/21 10:52 clotrimazole Allergy Unknown Unknown Verified 11/07/21 10:52 doxycycline Allergy Unknown Unknown Verified 11/07/21 10:52 febuxostat Allergy Unknown Unknown Verified 11/07/21 10:52 Sulfa (Sulfonamide Allergy Unknown Hives Verified 11/07/21 10:53 Antibiotics) tetracycline Allergy Unknown Hives Verified 11/07/21 10:53 Review of Systems Review of Systems: CONSTITUTIONAL: Denies fever, chills, or sweats. EYES: Denies visual changes, redness, or discharge. ENT: Denies rhinorrhea, congestion, sore throat. Reports of right otalgia radiating to the head and neck CARDIOVASCULAR: Reports of a history of PVCs and palpitations but currently denies chest pain RESPIRATORY: Denies cough or dyspnea. GASTROINTESTINAL: Denies abdominal pain, nausea, vomiting, or diarrhea. GENITOURINARY: Denies dysuria or hematuria. SKIN: Denies rash or itching. MUSCULOSKELETAL: Denies back pain, joint pain, or myalgia. NEUROLOGIC: Reports of a headache All other systems reviewed are negative, except as documented in HPI. [facility] Past Medical History Medical History (Updated 11/07/21 @ 11:21 by SARY Madrid) Anxiety disorder, unspecified Chronic GERD Diverticular disease ROMEO (dyspnea on exertion) Elevated LFTs Essential (primary) hypertension Gastro-esophageal reflux disease without esophagitis Gout, unspecified Allergic to most gout medicine and can only take steroids. Hyperglycemia Other fatigue Pure hypercholesterolemia, unspecified PVC's (premature ventricular contractions) Surgical History Surgical History H/O cataract extraction Bilaterally H/O: hysterectomy Total vaginal hysterectomy History of removal of pigmented skin lesion Hx of cholecystectomy S/P tonsillectomy and adenoidectomy Family History Family History Mother Patient's mother is Cerebrovascular accident Hypertension Aneurysm Father D
[2021-11-07 10:54] VITALS: BP 170/84; PULSE 86; RESP 16; TEMP 36.6; O2SAT 100
--- NOTE | 2021-11-07 11:23 | ECG_ITS ---
Measurements Intervals [place] Rate: 116 P: 57 DC: 132 QRS: 11 QRSD: 86 T: 58 QT: 299 QTc: 417 Interpretive Statements SINUS TACHYCARDIA WITH FREQUENT VENTRICULAR PREMATURE COMPLEXES IN FORM OF VENTRICULAR BIGEMINY POSSIBLE LEFT ATRIAL ENLARGEMENT [-0.1mV P WAVE IN V1/V2] BASELINE ARTIFACT ABNORMAL ECG COMPARED TO ECG 02/04/2020 13:15:47 HEART RATE HAS INCREASED AND PVCS ARE PRESENT Electronically Signed On 11-07-2021 16:59:02 CDT by Lopez Cherry M.D.
[2021-11-07 11:40] VITALS: BP 201/61; PULSE 112; O2SAT 98
== END 2021-11-07 11:40 | disposition short-term general hospital (02) ==
PROVIDERS: Emergency Provider Nurse Practitioner Family; PCP Internal Medicine
DX: I49.9 Cardiac arrhythmia, unspecified (principal); H92.01 Otalgia, right ear; R51.9 Headache, unspecified; Z87.891 Personal history of nicotine dependence; K21.9 Gastro-esophageal reflux disease without esophagitis; I10 Essential (primary) hypertension; M10.9 Gout, unspecified; E78.00 Pure hypercholesterolemia, unspecified; Z98.42 Cataract extraction status, left eye; Z98.41 Cataract extraction status, right eye; Z79.82 Long term (current) use of aspirin; F41.9 Anxiety disorder, unspecified
CPT/HCPCS: 93005; 99215; G0463

== ENCOUNTER 2021-11-07 12:10 | Emergency (ER) | payer MEDICARE, SELFPAY ==
[2021-11-07] VITALS (15 sets, daily range): BP systolic 156–189; BP diastolic 74–84; PULSE 82–98; RESP 11–22; TEMP 36.8; O2SAT 97–99
--- NOTE | 2021-11-07 12:26 | ECG_ITS ---
Measurements Intervals [place] Rate: 90 P: 32 WA: 146 QRS: 0 QRSD: 82 T: 40 QT: 337 QTc: 412 Interpretive Statements SINUS RHYTHM POOR R-WAVE PROGRESSION BORDERLINE ECG COMPARED TO ECG 11/07/2021 11:05:49 HEART RATE HAS DECREASED AND PVCS NO LONGER APPRECIATED Electronically Signed On 11-07-2021 17:04:57 CDT by Lopez Cherry M.D.
[2021-11-07 13:09] LABS: Appearance Urine Slightly Cloudy (Clear); Basophils Absolute Auto 0.1 K/mm3 (0.0-0.1); Basophils Percent Auto 1.3 % (0.2-1.2); Bilirubin Urine Negative (Negative); Color Urine Yellow (Yellow); Eosinophils Absolute Auto 0.2 K/mm3 (0-0.3); Glucose Urine UA Negative (Negative); Hematocrit 41.4 % (37.0-47.0); Hemoglobin 14.8 g/dL (12.0-15.0); Immature Granulocyte Absolute 0.02 K/mm3 (0.00-0.031); Immature Granulocyte Percent A 0.4 % (0-0.5); Ketones Urine Negative (Negative); Leukocyte Esterase Ur Trace LEU/UL (Negative); Lymphocytes Absolute Auto 1.53 K/mm3 (0.9-3.2); Lymphocytes Percent Auto 29.1 % (18.3-44.2); Mean Corpuscular HGB Conc 35.7 g/dl (32-36); Mean Corpuscular Hemoglobin 32.4 pg (26-34); Mean Corpuscular Volume 90.6 fl (80-100); Mean Platelet Volume 9.1 fl (7.4-10.4); Monocytes Absolute Auto 0.9 K/mm3 (0.1-0.6); Monocytes Percent Auto 17.9 % (2.6-8.5); Neutrophils Absolute Auto 2.5 K/mm3 (1.3-6.7); Neutrophils Percent Auto 48.3 % (45.5-73.1); Nitrate Urine Negative (Negative); Platelet Count Result 352 k/mm3 (150-375); Protein Urine Negative (Negative); Red Blood Count 4.57 M/mm3 (4.2-5.4); Red Cell Distribution Width 12.1 % (11.5-14.5); Specific Grav Ur 1.015 (1.001-1.035); Urobilinogen Urine 0.2 mg/dL (<2.0); White Blood Count 5.3 K/mm3 (4.5-10.0)
[2021-11-07 13:16] LABS: Add Urine Microscopic? YES; Bacteria Urine Trace /hpf; Blood Urine Trace-Intact (Negative); RBC Urine 0-2 /hpf (0-2); Squamous Epithelial Cell Urine Rare /hpf (Few); WBC Urine 0-3 /hpf
[2021-11-07 13:24] LABS: Alanine Aminotransferase 42 U/L (4-35); Albumin Level 4.4 g/dL (3.5-5.1); Alkaline Phosphatase 69 U/L (38-126); Anion Gap 8 mmol/L (8-16); Aspartate Amino Transferase 44 U/L (14-36); Bilirubin,Total 0.5 mg/dL (0.2-1.3); Blood Urea Nitrogen 15 mg/dL (7-17); Calcium 8.9 mg/dL (8.4-10.2); Carbon Dioxide 28 mmol/L (22-30); Chloride 95 mmol/L (98-107); Estimated CRCL calculation 48 ml/min; Estimated Glomerular Filt Rate > 60; Glucose 115 mg/dL (65-110); Potassium 4.1 mmol/L (3.4-5.0); Sodium 131 mmol/L (137-145)
--- NOTE | 2021-11-07 14:54 | ED.ARRPALP ---
HPI - Arrhythmia/Palpitations General Chief Complaint: Arrhythmia/Palpitations Stated Complaint: dizzy Time Seen by Provider: 11/07/21 12:52 History of Present Illness HPI narrative: Patient is a 76-year-old female who presents ER with earache. Patient went to urgent care for this earache and was found to have frequent PVCs and then at one point was in [facility]. They sent her here for further evaluation. Patient was having no chest pain or shortness of breath or dizziness related to this. Patient has had some occasional lightheadedness when she turns her head over the last few days but that has been associated with her earache and pressure. She has muffled hearing on that side. She called her PCP who prescribed her antibiotics to treat an external ear infection. Patient has had no exposure to hot tubs or fresh water. No drainage from her ear. Related Data Home Medications Medication Instructions Recorded Confirmed aspirin 81 mg tablet,delayed 81 mg PO Q48H 08/15/19 11/07/21 release loratadine 10 mg tablet 10 mg PO DAILY PRN 08/15/19 11/07/21 omeprazole magnesium 20 mg 20 mg PO DAILY 02/21/20 11/07/21 tablet,delayed release cholecalciferol (vitamin D3) 25 2,000 unit PO DAILY tablet 07/03/21 11/07/21 mcg (1,000 unit) tablet Allergies Allergy/AdvReac Type Severity Reaction Status Date / Time loracarbef Allergy Severe Swelling Verified 11/07/21 10:52 of Lip/Tongue/Throat meperidine Allergy Severe Anaphylaxis Verified 11/07/21 10:52 carbamazepine Allergy Intermediate Rash Verified 11/07/21 10:52 codeine Allergy Intermediate Palpitation Verified 11/07/21 10:52 s Penicillins Allergy Intermediate Hives Verified 11/07/21 10:52 allopurinol Allergy Mild Rash Verified 11/07/21 10:52 cephalexin Allergy Unknown Unknown Verified 11/07/21 10:52 clotrimazole Allergy Unknown Unknown Verified 11/07/21 10:52 doxycycline Allergy Unknown Unknown Verified 11/07/21 10:52 febuxostat Allergy Unknown Unknown Verified 11/07/21 10:52 Sulfa (Sulfonamide Allergy Unknown Hives Verified 11/07/21 10:53 Antibiotics) tetracycline Allergy Unknown Hives Verified 11/07/21 10:53 Review of Systems Review of Systems: All systems reviewed & are unremarkable except as noted in HPI and below Constitutional: Constitutional: Denies chills, Denies fever(s) and Denies weakness ENT: Reports nasal congestion and Denies sore throat Comments: Right ear pain Cardiovascular: Cardiovascular: Denies chest pain, Denies rapid heart rate and Denies radiating jaw, neck or arm pain Respiratory: Respiratory: Denies cough, Denies dyspnea and Denies wheezing Gastrointestinal: Gastrointestinal: Denies abdominal pain, Denies nausea and Denies vomiting [facility] Past Medical History Medical History (Updated 11/07/21 @ 14:59 by Angel Doyle MD) Anxiety disorder, unspecified Chronic GERD Diverticular disease ROMEO (dyspnea on exertion) Elevated LFTs Essential (primary) hypertension Gastro-esophageal reflux disease without esophagitis Gout, unspecified Allergic to most gout medicine and can only take steroids. Hyperglycemia Other fatigue Pure hypercholesterolemia, unspecified PVC's (premature ventricular contractions) Surgical History Surgical History H/O cataract extraction Bilaterally H/O: hysterectomy Total vaginal hysterectomy History of removal of pigmented skin lesion Hx of cholecystectomy S/P tonsillectomy and adenoidectomy Family History Family History Mother Patient's mother is Cerebrovascular accident Hypertension Aneurysm Father Patient's father is Hypertension Sibling Hypertension 2 sisters Family history of diabetes mellitus in first degree relative 1 sister Social History Social History Social Histor
== END 2021-11-07 15:18 | disposition home or self-care (01) ==
PROVIDERS: Emergency Medicine; Emergency Provider Emergency Medicine; PCP Internal Medicine
DX: I49.3 Ventricular premature depolarization (principal); R00.8 Other abnormalities of heart beat; H93.8X1 Other specified disorders of right ear; I10 Essential (primary) hypertension; E78.00 Pure hypercholesterolemia, unspecified; K21.9 Gastro-esophageal reflux disease without esophagitis; M10.9 Gout, unspecified; Z98.42 Cataract extraction status, left eye; Z98.41 Cataract extraction status, right eye; Z87.891 Personal history of nicotine dependence; Z79.82 Long term (current) use of aspirin; R94.31 Abnormal electrocardiogram [ECG] [EKG]
CPT/HCPCS: 36415; 80053; 81001; 83735; 85025; 93005; 99284

== ENCOUNTER 2022-06-30 08:23 | Outpatient (CLI) | payer MEDICARE, SELFPAY ==
--- NOTE | ~2022-06-30 | MM_ITS ---
EXAMINATION: MM screening taniya BI w gabriela HISTORY: Screening TECHNIQUE: Craniocaudal and mediolateral oblique 3-D tomosynthesis images were obtained and synthetic 2-D images were generated. CAD analysis was submitted and interpreted. COMPARISON: Comparison to multiple prior studies sequentially, with oldest reviewed study dated 02/06. BREAST PARENCHYMAL COMPOSITION: There are scattered areas of fibroglandular density. FINDINGS: There is a new focal asymmetry superiorly in the right breast on MLO view. The left breast is stable without evidence for malignancy. IMPRESSION: 1. New focal right breast asymmetry superiorly on MLO view. 2. Additional mammographic views and possible breast ultrasound are recommended. BI-RADS Category 0: Incomplete: Needs additional imaging evaluation. Reviewed, dictated and finalized at location B. MACHINERY MECHANIC IMPRESSION: 1. New focal right breast asymmetry superiorly on MLO view. 2. Additional mammographic views and possible breast ultrasound are recommended . BI-RADS Category 0: Incomplete: Needs additional imaging evaluation.
== END 2022-06-30 08:24 | disposition home or self-care (01) ==
LOC: ANHIMG 08:27
PROVIDERS: PCP Internal Medicine; Visit Provider Obstetrics & Gynecology
DX: Z12.31 Encounter for screening mammogram for malignant neoplasm of breast (principal); R92.8 Other abnormal and inconclusive findings on diagnostic imaging of breast
CPT/HCPCS: 77063; 77067

== ENCOUNTER 2022-07-24 11:38 | Outpatient (CLI) | payer MEDICARE, SELFPAY ==
--- NOTE | ~2022-07-24 | MM_ITS ---
EXAMINATION: MM diagnostic taniya RT w gabriela HISTORY: Focal asymmetry of the right breast on screening mammogram TECHNIQUE: Additional 3-D tomosynthesis images of the right breast were performed and synthetic 2-D i mages were generated. CAD analysis was submitted and interpreted. COMPARISON: 06/30/2022, 06/27/2021, 05/30/2020 FINDINGS: There is a return to baseline fibroglandular appearance with spot compression of the right breast in the area questioned on screening mammogram. IMPRESSION: 1. No mammographic evidence of malignancy. 2. Recommend routine screening mammography in one year. BI-RADS Category 1: Negative Reviewed, dictated and finalized at location A. RICT SALES MANAGER
== END 2022-07-24 11:39 | disposition home or self-care (01) ==
LOC: ANHIMG 11:42
PROVIDERS: PCP Internal Medicine; Visit Provider Obstetrics & Gynecology
DX: R92.8 Other abnormal and inconclusive findings on diagnostic imaging of breast (principal)
CPT/HCPCS: 77061; 77065; G0279

== ENCOUNTER 2022-07-25 10:14 | Outpatient (CLI) | payer MEDICARE, SELFPAY ==
--- NOTE | ~2022-07-25 | US_ITS ---
Renal-Bladder ultrasound Clinical History: Chronic cystitis Technique: Real-time sonographic imaging of the kidneys and urinary bladder was performed. Findings: The right kidney measures 11.1 cm in length and the left kidney measures 10.3 cm. There is no hydronephrosis or renal calculus identified. Renal cortical echogenicity is within normal limits. No renal mass lesion is identified. The urinary bladder is moderately distended at the time of this exam. No intraluminal echoes are iden tified. No abnormal wall thickening is seen. Impression: Unremarkable ultrasound of the kidneys and urinary bladder. Reviewed, dictated and finalized at location M. [place] PERFORMANCE COACH Impression: Unremarkable ultrasound of the kidneys and urinary bladder.
== END 2022-07-25 10:15 | disposition home or self-care (01) ==
PROVIDERS: PCP Internal Medicine; Visit Provider Nurse Practitioner Family
DX: N30.20 Other chronic cystitis without hematuria (principal)
CPT/HCPCS: 76770

== ENCOUNTER 2022-10-15 13:12 | Outpatient (CLI) | payer MEDICARE, SELFPAY ==
--- NOTE | 2022-10-15 13:24 | ECHO_ITS ---
Patient Info Name: Marisabel Beck Age: 76 years : 1945 Gender: Female Ht: 63 in Wt: 155 lbs BSA: 1.79 m2 HR: 88 bpm BP: 189 / 104 mmHg Technical Quality: Fair Exam Date: 10/15/2022 1:35 PM Exam Location: [facility] Patient Status: Outpatient Admit Date: 10/15/2022 Staff Ordering Physician: Garrett Gusman DO Match Up Person: Mukesh Jacob RDCS, RT Attending Provider: Garrett Gusman DO Referring Physician: Uzma SNYDER; Exam Type: CA echo doppler color flow Study Info Indications I11.0 - Hypertensive heart disease with heart failure Complete two-dimensional, color flow and Doppler transthoracic echocardiogram is performed. Strain analysis performed. Summary 1. Complete two-dimensional, color flow and Doppler transthoracic echocardiogram is performed. 2. Left ventricular chamber dimension is normal. 3. Left ventricular systolic function is normal, estimated at 55-60%. 4. The left ventricular diastolic function is grade I diastolic dysfunction. 5. E/e' 15 is elevated. 6. Global longitudinal strain is abnormal at -13.2%. Left Ventricle E/e' 15 is elevated. Global longitudinal strain is abnormal at -13.2%. Left ventricular chamber dimension is normal. Left ventricular systolic function is normal, estimated at 55-60%. The left ventricular diastolic function is grade I diastolic dysfunction. Right Ventricle Right ventricular systolic function is normal and with normal TAPSE 1.9 cm. Right ventricular chamber dimension is normal. Left Atria Left atrial chamber dimension is normal. Right Atria Right atrial chamber dimension is normal. Aortic Valve The aortic valve is trileaflet. There is no aortic valve stenosis. There is no aortic valve regurgitation. Pulmonic Valve There is no pulmonic regurgitation. Mitral Valve There is no mitral valve stenosis. There is no mitral valve regurgitation. Tricuspid Valve There is no tricuspid valve regurgitation. Pericardium/Pleural There is no pericardial effusion. Inferior Vena Cava Normal inferior vena cava with >50% collapse upon inspiration consistent with normal right atrial pressure, 5 mmHg. Aorta The aortic root size at the sinus of Valsalva is normal. Left Ventricular Outflow Tract Name Value Normal LVOT 2D LVOT Diameter 2.0 cm LVOT Doppler LVOT Peak Gradient 2 mmHg LVOT Mean Gradient 1 mmHg LVOT VTI 14 cm LVOT VTI/AV VTI Ratio 0.6 LVOT Stroke Volume 42 ml LVOT CO 3.7 l/min LVOT CI 2.0 l/min/m2 Mitral Valve Name Value Normal MV Doppler MV Decel Divide 307 cm/s2 MV PHT 62 ms
== END 2022-10-15 13:13 | disposition home or self-care (01) ==
PROVIDERS: PCP Internal Medicine; Visit Provider Internal Medicine
DX: R53.83 Other fatigue (principal); I10 Essential (primary) hypertension
CPT/HCPCS: 93306

== ENCOUNTER 2023-05-04 11:10 | Emergency (ER) | payer MEDICARE, SELFPAY ==
--- NOTE | ~2023-05-04 | CT_ITS ---
CT of the Abdomen and Pelvis: Indication: Abdominal pain Technique: 2.5 mm axial scans were obtained through the abdomen and pelvis following intravenous adm inistration of 100 cc of Omnipaque 350. Dose reduction technique was used on this scan by utilizing a utomated exposure control and iterative reconstruction technique. The dose-length product (DLP) was 5 71.94 mGy-cm. COMPARISON: 03/11/2020 Findings: Scans through the lung bases demonstrates stable 5 mm left basilar pulmonary nodule. Stable small hepatic cysts noted. The spleen, pancreas, adrenals and kidneys are within normal limits . Cholecystectomy clips are present. There are atherosclerotic calcifications of the aorta. No lymph adenopathy. No bowel obstruction or bowel wall thickening. Normal appendix. Extensive colonic diverticulosis note d. Images through the pelvis were performed. Urinary bladder unremarkable. Patient is post hysterectomy. No pelvic mass seen. No ascites. Impression: No acute abnormality. Extensive colonic diverticulosis. Stable 5 mm basilar pulmonary nodule. Stability over this time interval is consistent with benignity. Reviewed, dictated and finalized at [facility]. Impression: No acute abnormality. Extensive colonic diverticulosis. Stable 5 mm basilar pulmonary nodule. Stability over this time interval is cons istent with benignity.
[2023-05-04 11:34] VITALS: BP 147/82; PULSE 56; RESP 18; TEMP 36.1; O2SAT 99
[2023-05-04 11:54] LABS: Basophils Absolute Auto 0.1 K/mm3 (0.0-0.1); Basophils Percent Auto 1.1 % (0.2-1.2); Eosinophils Absolute Auto 0.1 K/mm3 (0-0.3); Eosinophils Percent Auto 1.4 % (0-4.4); Hematocrit 41.5 % (37.0-47.0); Hemoglobin 14.6 g/dL (12.0-15.0); Immature Granulocyte Absolute 0.01 K/mm3 (0.00-0.031); Immature Granulocyte Percent A 0.2 % (0-0.5); Lymphocytes Absolute Auto 2.01 K/mm3 (0.9-3.2); Lymphocytes Percent Auto 31.9 % (18.3-44.2); Mean Corpuscular HGB Conc 35.2 g/dl (32-36); Mean Corpuscular Volume 93.9 fl (80-100); Mean Platelet Volume 10.1 fl (7.4-10.4); Monocytes Percent Auto 15.2 % (2.6-8.5); Neutrophils Absolute Auto 3.2 K/mm3 (1.3-6.7); Neutrophils Percent Auto 50.2 % (45.5-73.1); Platelet Count Result 290 k/mm3 (150-375); Red Blood Count 4.42 M/mm3 (4.2-5.4); Red Cell Distribution Width 12.7 % (11.5-14.5); White Blood Count 6.3 K/mm3 (4.5-10.0)
[2023-05-04 12:05] LABS: Alanine Aminotransferase 38 U/L (6-35); Albumin Level 4.2 g/dL (3.5-5.1); Alkaline Phosphatase 69 U/L (38-126); Anion Gap 8 mmol/L (8-16); Aspartate Amino Transferase 41 U/L (14-36); Bilirubin,Total 0.7 mg/dL (0.2-1.3); Blood Urea Nitrogen 11 mg/dL (7-17); Calcium 9.2 mg/dL (8.4-10.2); Carbon Dioxide 28 mmol/L (22-30); Chloride 99 mmol/L (98-107); Estimated CRCL calculation 37 ml/min; Estimated Glomerular Filt Rate 53; Glucose 116 mg/dL (65-110); Lipase 106 U/L (23-300); Sodium 135 mmol/L (137-145)
[2023-05-04 13:11] VITALS: BP 144/86; PULSE 59; RESP 19; O2SAT 100
[2023-05-04 13:16] LABS: Appearance Urine Cloudy (Clear); Bacteria Urine Rare /hpf; Bilirubin Urine Negative (Negative); Blood Urine Negative (Negative); Color Urine Yellow (Yellow); Glucose Urine UA Negative (Negative); Ketones Urine Negative (Negative); Leukocyte Esterase Ur 1+ LEU/UL (Negative); Nitrate Urine Negative (Negative); Non Pathogenic Casts 0-2; Protein Urine Negative (Negative); RBC Urine 0-2 /hpf (0-2); Specific Grav Ur 1.014 (1.001-1.035); Squamous Epithelial Cell Urine Few /hpf (Few); Urobilinogen Urine 0.2 mg/dL (<2.0); pH Urine 6.5 (5.0-9.0)
--- NOTE | 2023-05-04 13:18 | ED.ABDPAIN ---
HPI - Abdominal Pain General Chief Complaint: Abdominal Pain <JOEL Walsh Last Filed: 05/04/23 15:31> Stated Complaint: right flank pain <JOEL Walsh Last Filed: 05/04/23 15:31> Time Seen by Provider: 05/04/23 12:55 <JOEL Walsh Last Filed: 05/04/23 15:31> History of Present Illness HPI narrative: 77 y/o F with a history of diverticulitis, hysterectomy and cholecystectomy reports for evaluation of RUQ and RLQ pain x3 days. Pt reports a hx of same and has been evaluated by her PCP and GI without dx. States the pain waxes and wanes, but has significantly worsened the past few days. Denies CP, SOB, fever, body aches, n/v/d, dysuria, hematuria. She is declining pain medications. <JOEL Walsh Last Filed: 05/04/23 15:31> Related Data Home Medications: Home Medications Medication Instructions Recorded Confirmed aspirin 81 mg tablet,delayed 81 mg PO Q48H 08/15/19 03/31/23 release (Adult Low Dose Aspirin) loratadine 10 mg tablet (Claritin) 10 mg PO DAILY PRN Allergy Symptoms 08/15/19 03/31/23 omeprazole magnesium 20 mg 20 mg PO DAILY 02/21/20 03/31/23 tablet,delayed release (Prilosec OTC) cholecalciferol (vitamin D3) 25 2,000 unit PO DAILY 07/03/21 03/31/23 mcg (1,000 unit) tablet (Vitamin D3) <JOEL Walsh Last Filed: 05/04/23 15:31> Allergies/Adverse Reactions: Allergies Allergy/AdvReac Type Severity Reaction Status Date / Time loracarbef Allergy Severe Swelling Verified 05/04/23 12:55 of Lip/Tongue/Throat meperidine Allergy Severe Anaphylaxis Verified 05/04/23 12:55 carbamazepine Allergy Intermediate Rash Verified 05/04/23 12:55 codeine Allergy Intermediate Palpitation Verified 05/04/23 12:55 s Penicillins Allergy Intermediate Hives Verified 05/04/23 12:55 allopurinol Allergy Mild Rash Verified 05/04/23 12:55 cephalexin Allergy Unknown Unknown Verified 05/04/23 12:55 clotrimazole Allergy Unknown Unknown Verified 05/04/23 12:55 doxycycline Allergy Unknown Unknown Verified 05/04/23 12:55 febuxostat Allergy Unknown Unknown Verified 05/04/23 12:55 Sulfa (Sulfonamide Allergy Unknown Hives Verified 05/04/23 12:55 Antibiotics) tetracycline Allergy Unknown Hives Verified 05/04/23 12:55 <Frieda Abebe PA-C - Last Filed: 05/04/23 15:31> Review of Systems Review of Systems: CONSTITUTIONAL: Denies fever, chills EYES: Denies visual changes, redness, or discharge. ENT: Denies rhinorrhea, congestion, sore throat, or otalgia. CARDIOVASCULAR: Denies chest pain, palpitations, or edema. RESPIRATORY: Denies cough or dyspnea. GASTROINTESTINAL: Denies abdominal pain, nausea, vomiting, or diarrhea. GENITOURINARY: Denies dysuria or hematuria. SKIN: Denies rash or itching. MUSCULOSKELETAL: Denies back pain, joint pain, or myalgia. NEUROLOGIC: Denies headache, numbness, dizziness, or weakness. PSYCHIATRIC: Denies anxiety or depression. <Frieda Abebe PA-C - Last Filed: 05/04/23 15:31> [facility] Past Medical History Medical History: Medical History Anxiety disorder, unspecified Chronic GERD Decreased hearing of right ear Diverticular disease ROMEO (dyspnea on exertion) Elevated LFTs Essential (primary) hypertension Gastro-esophageal reflux disease without esophagitis Gout, unspecified Allergic to most gout medicine and can only take steroids. Hyperglycemia Impacted cerumen of right ear Other fatigue Pure hypercholesterolemia, unspecified PVC's (premature ventricular contractions) <Frieda Abebe PA-C - Last Filed: 05/04/23 15:31> Surgical History Surgical History: Surgical History H/O cataract extraction Bilaterally H/O: hysterectomy Total vaginal hysterectomy History of removal of pigmented skin lesion Hx of cholecystectomy S/P tonsillectomy and adenoidectom
[2023-05-04 13:29] LABS: Add Urine Microscopic? YES
[2023-05-04 15:07] VITALS: BP 141/70; PULSE 94; RESP 14; O2SAT 100
[2023-05-04 15:27] VITALS: O2SAT 99
[2023-05-04 15:30] VITALS: O2SAT 97
[2023-05-04 15:31] VITALS: BP 160/62; PULSE 78; RESP 14; O2SAT 98
== END 2023-05-04 15:46 | disposition home or self-care (01) ==
PROVIDERS: Emergency Medicine; Emergency Provider Emergency Medicine; PCP Internal Medicine
DX: N39.0 Urinary tract infection, site not specified (principal); R10.11 Right upper quadrant pain; R10.31 Right lower quadrant pain; I10 Essential (primary) hypertension; E78.00 Pure hypercholesterolemia, unspecified; M10.9 Gout, unspecified; K21.9 Gastro-esophageal reflux disease without esophagitis; K57.90 Diverticulosis of intestine, part unspecified, without perforation or abscess without bleeding; Z87.891 Personal history of nicotine dependence; Z90.49 Acquired absence of other specified parts of digestive tract; Z90.710 Acquired absence of both cervix and uterus; Z98.42 Cataract extraction status, left eye; Z98.41 Cataract extraction status, right eye; R91.1 Solitary pulmonary nodule; Z79.82 Long term (current) use of aspirin
CPT/HCPCS: 36415; 74177; 80053; 81001; 83690; 85025; 87086; 87088; 99284; Q9967

== ENCOUNTER 2023-06-02 10:45 | Outpatient (CLI) | payer MEDICARE, SELFPAY | END 2023-06-02 10:46 | disposition home or self-care (01) | LOC: ANHAUDIO 10:45 | PROVIDERS: PCP Internal Medicine; Visit Provider Otolaryngology | DX: H90.3 Sensorineural hearing loss, bilateral (principal) | CPT/HCPCS: 92557; 92567 ==

== ENCOUNTER 2023-06-25 16:34 | Emergency (ER) | payer MEDICARE, SELFPAY ==
--- NOTE | ~2023-06-25 | XR_ITS ---
EXAMINATION: XR chest 2V 06/25/2023 16:56 INDICATION: Chest pain for 2 days. Hypertension. PROCEDURE: 2 view chest COMPARISON: Comparison to multiple prior studies sequentially, with oldest reviewed study dated 08/06. FINDINGS: The lungs are clear. The cardiomediastinal silhouette is within normal limits. There are no pleural effusions. There is no pneumothorax suspected. IMPRESSION: 1: NO ACUTE CARDIOPULMONARY DISEASE. Reviewed, dictated and finalized at location L. LY CHAIN ENGINEER
--- NOTE | 2023-06-25 16:35 | ECG_ITS ---
Measurements Intervals [place] Rate: 105 P: 58 MA: 144 QRS: -4 QRSD: 83 T: 36 QT: 325 QTc: 430 Interpretive Statements SINUS TACHYCARDIA WITH FREQUENT VENTRICULAR PREMATURE COMPLEXES IN A BIGEMINAL PATTERN POSSIBLE LEFT ATRIAL ENLARGEMENT [-0.1mV P WAVE IN V1/V2] ABNORMAL RHYTHM ECG COMPARED TO ECG 11/07/2021 12:19:44 VENTRICULAR BIGEMINY IS NOW DEMONSTRATED Electronically Signed On 06-26-2023 7:29:37 INCREMENT MANAGER by Milo Rowell M.D.
[2023-06-25 16:39] VITALS: BP 156/97; PULSE 58; RESP 18; TEMP 36.7; O2SAT 98
[2023-06-25 17:02] LABS: Basophils Absolute Auto 0.1 K/mm3 (0.0-0.1); Basophils Percent Auto 1.1 % (0.2-1.2); Eosinophils Absolute Auto 0.2 K/mm3 (0-0.3); Eosinophils Percent Auto 3.3 % (0-4.4); Hematocrit 42.7 % (37.0-47.0); Hemoglobin 14.8 g/dL (12.0-15.0); Immature Granulocyte Absolute 0.02 K/mm3 (0.00-0.031); Immature Granulocyte Percent A 0.3 % (0-0.5); Lymphocytes Absolute Auto 2.24 K/mm3 (0.9-3.2); Lymphocytes Percent Auto 35.2 % (18.3-44.2); Mean Corpuscular HGB Conc 34.7 g/dl (32-36); Mean Corpuscular Volume 92.2 fl (80-100); Mean Platelet Volume 10.6 fl (7.4-10.4); Monocytes Absolute Auto 0.7 K/mm3 (0.1-0.6); Monocytes Percent Auto 10.8 % (2.6-8.5); Neutrophils Absolute Auto 3.1 K/mm3 (1.3-6.7); Neutrophils Percent Auto 49.3 % (45.5-73.1); Platelet Count Result 340 k/mm3 (150-375); Red Blood Count 4.63 M/mm3 (4.2-5.4); Red Cell Distribution Width 12.2 % (11.5-14.5); White Blood Count 6.4 K/mm3 (4.5-10.0)
[2023-06-25 17:06] LABS: Prothrombin Time 13.1 Seconds (11.1-14.7)
[2023-06-25 17:07] LABS: Partial Thromboplastin Time 24.8 SECONDS (22.3-36.8)
[2023-06-25 17:11] LABS: Alanine Aminotransferase 42 U/L (6-35); Albumin Level 4.4 g/dL (3.5-5.1); Alkaline Phosphatase 81 U/L (38-126); Anion Gap 9 mmol/L (8-16); Aspartate Amino Transferase 49 U/L (14-36); Bilirubin,Total 0.5 mg/dL (0.2-1.3); Blood Urea Nitrogen 15 mg/dL (7-17); Calcium 9.6 mg/dL (8.4-10.2); Carbon Dioxide 26 mmol/L (22-30); Chloride 103 mmol/L (98-107); Estimated CRCL calculation 34 ml/min; Estimated Glomerular Filt Rate 48; Glucose 122 mg/dL (65-110); Lipase 120 U/L (23-300); Potassium 3.5 mmol/L (3.4-5.0); Sodium 138 mmol/L (137-145)
[2023-06-25 17:23] LABS: Troponin I < 0.012 ng/mL (0.000-0.034)
[2023-06-25 21:05] LABS: Troponin I < 0.012 ng/mL (0.000-0.034)
[2023-06-25 21:11] VITALS: BP 155/72; PULSE 61; RESP 18; O2SAT 97
== END 2023-06-25 21:15 | disposition left against medical advice (07) ==
PROVIDERS: Emergency Provider Emergency Medicine; PCP Internal Medicine
DX: R07.9 Chest pain, unspecified (principal)
CPT/HCPCS: 36415; 71046; 80053; 83690; 84484; 85025; 85610; 85730; 93005; 99199

== ENCOUNTER 2023-09-09 09:49 | Outpatient (CLI) | payer MEDICARE, SELFPAY ==
--- NOTE | ~2023-09-09 | MM_ITS ---
EXAMINATION: MM screening [facility] BI w gabriela HISTORY: Screening TECHNIQUE: Craniocaudal and mediolateral oblique 3-D tomosynthesis images were obtained and synthetic 2-D images were generated. CAD analysis was submitted and interpreted. COMPARISON: Comparison to multiple prior studies sequentially, with oldest reviewed study dated 03/03. BREAST PARENCHYMAL COMPOSITION: Not dense: There are scattered areas of fibroglandular density. FINDINGS: There is no evidence of suspicious mass, calcification, or architectural distortion to sugg est malignancy in either breast. There has been no suspicious interval change. IMPRESSION: 1. No mammographic evidence of malignancy. 2. Recommend routine screening mammography in one year. BI-RADS Category 1: Negative Reviewed, dictated and finalized at location A. COMMUNICATIONS
== END 2023-09-09 09:50 | disposition home or self-care (01) ==
LOC: ANHIMG 09:54
PROVIDERS: PCP Internal Medicine; Visit Provider Obstetrics & Gynecology
DX: Z12.31 Encounter for screening mammogram for malignant neoplasm of breast (principal)
CPT/HCPCS: 77063; 77067

== ENCOUNTER 2024-09-06 10:00 | Outpatient (CLI) | payer MEDICARE, SELFPAY ==
--- NOTE | 2024-09-06 10:03 | EST_ITS ---
Patient Info Name: Marisabel Beck Age: 78 years : 1945 Gender: Female Ht: 63 in Wt: 160 lbs BSA: 1.82 m2 Technical Quality: Fair Exam Date: 09/06/2024 10:29 AM Exam Location: Echo Lab Patient Status: Outpatient Admit Date: 09/06/2024 Staff Ordering Physician: John Mariee DO Underground Bolting Machine Operator: Ryanne Oropeza RDCS Attending Provider: DR. LUTZ Referring Physician: Kodi WORLEY; Exercise Technologist: Almaz Sexton RDCS Exercise Physician: Yifan Lutz DO Exam Type: CA stress echo Study Info Indications R06.09 - Other forms of dyspnea Treadmill exercise stress echocardiogram is performed. Summary 1. 1. Negative Lawrence exercise stress test for ischemic ST changes by ECG criteria. 2. 2. Poor functional capacity, achieving 4 METs of workload. 3. 3. Rapid HR response to exercise. 4. 4. Appropriate HR recovery at 1 minute post exercise. 5. 5. Negative stress echocardiogram for ischemia by wall motion analysis. 6. 6. Patient informed of the above results. Stress Echo Findings Left Ventricle Appropriate increase in LV endocardial thickening with systole. Appropriate augmentation of contractility with systole. No wall motion abnormality. Left Ventricle Normal LV systolic function, no wall motion abnormality. Protocol: Lawrence Stress ECG Details Stage: REST Duration (min): 1 min : 40 sec Speed (mph): 0.0 Grade (%): 0 HR (bpm): 91 SBP (mmHg): 172 DBP (mmHg): 76 METS: --- Stage: REST Duration (min): 10 min : 29 sec Speed (mph): 0.0 Grade (%): 0 HR (bpm): 98 SBP (mmHg): 172 DBP (mmHg): 76 METS: --- Stage: STAGE 1 Duration (min): 1 min : 0 sec Speed (mph): 1.7 Grade (%): 10 HR (bpm): 122 SBP (mmHg): 172 DBP (mmHg): 76 METS: --- Stage: STAGE 1 Duration (min): 2 min : 0 sec Speed (mph): 1.7 Grade (%): 10 HR (bpm): 143 SBP (mmHg): 172 DBP (mmHg): 76 METS: --- Stage: STAGE 1 Duration (min): 2 min : 3 sec Speed (mph): 0.0 Grade (%): 0 HR (bpm): 135 SBP (mmHg): 172 DBP (mmHg): 76 METS: --- Stage: RECOVERY Duration (min): 0 min : 56 sec Speed (mph): 0.0 Grade (%): 0 HR (bpm): 136 SBP (mmHg): 210 DBP (mmHg): 73 METS: --- Stage: RECOVERY Duration (min): 1 min : 56 sec Speed (mph): 0.0 Grade (%): 0 HR (bpm): 123 SBP (mmHg): 210 DBP (mmHg): 73 METS: --- Stage: RECOVERY Duration (min): 2 min : 56 sec Speed (mph): 0.0 Grade (%): 0 HR (bpm): 116 SBP (mmHg): 210 DBP (mmHg): 73 METS: --- Stage: RECOVERY Duration (min): 3 min : 56 sec Speed (mph): 0.0 Grade (%): 0 HR (bpm): 110 SBP (mmHg): 210 DBP (mmHg): 73 METS: --- Stage: RECOVERY Duration (min): 4 min : 33 sec Speed (mph): 0.0 Grade (%): 0 HR (bpm): 106 SBP (mmHg): 157 DBP (mmHg): 105 METS: --- Rest HR: 98 bpm Peak HR: 147 bpm Rest Sys BP: 172 mmHg Peak Sys BP: 210 mmHg Max Pred HR: 140 bpm % Max Pred HR: 105 % Target HR: 119 bpm Max RPP: 30,870 bpm*mmHg Koo Score: -3 Termination Reason: Reached target heart rate or workload Cardiac Symptoms: Shortness of breath Max ST Seg Deviation: 1.00 mm Total Time: 2 min : 3 sec Rest Suarez BP: 76 mmHg Peak Suarez BP: 73 mmHg Angina Score: None Total METS: 4.6 Resting ECG Sinus rhythm with frequent PVC's. Stress ECG No ST changes. Arrhythmias None. Report Signatures Stress ECG Echo
--- OUTSIDE RECORDS SUMMARY | 2024-09-06 10:11 | XMS_ITS | Continuity of Care Document ---
Author Organization [facility] Address [address] [place] [address] [place] [address] Phone Care Team Providers Care Smoke Room Operator Name Role Phone Georgi Goodwin Unavailable Unavailable [...] Copied on Encounter Office/outpat ient Visit, Est [facility], [address] [place] [address] [address], [place], [place], [id number], [place] tel:[phone] [facility] No Information 0 Christa Laureano. Tatyana [address] , [address], [place], [address], [place]. tel:[phone] Referring Provider: Tatyana [address], [place], [address]. tel:[phone] [facility], [address] [place] [address] [address], [place], [place], [id number], [place] tel:[phone] [facility] No Information 9 Christa Laureano. [address], [address], [place], [address], [place]. tel:[phone] Referring Provider: Georgi Burrell, [address], [place], [address]. tel:[phone] [facility], [address] [place] [address] [address], [place], [place], [id number], [place] tel:[phone] [facility] No Information 1200 9 Christa Laureano. [address], [address], [place], [address], [place]. tel:[phone] Referring Provider: Georgi Burrell, [address], [place], [place], [facility]. tel:[phone] [facility], [address] [place] [address] [address], [place], [place], [id number], [place] tel:[phone] [facility] No Information 1200 9 Christa Laureano. [address], [address], [place], [address], [place]. tel:[phone] [facility], [address], [place], [place], [id number], [place] tel:[phone] [facility] No Information 5200 8 Christa Laureano. [address], [address], [place], [facility], [place]. tel:[phone] Referring Provider: Tatyana [address], [place], [address]. tel:[phone] [facility], [address], [place], [place], [id number], [place] tel:[phone] [facility] No Information 7-200 8 Christa Laureano. [address], [address], [place], [address], [place]. tel:[phone] Referring Provider: Georgi Burrell, [address], [place], [address]. tel:[phone] [place]pat ient [place], [facility] [address], [place], [place], [id number], [place] tel:[phone] [facility] No Information Oct-2 0-200 7 Christa Laureano. [address] , [address], [place], [address], [place]. tel:[phone] Family History Family Member Type Diagnosis Age At Onset No Information Payers Payer name Insurance type Covered libertarian ID Authoriza tiuzma(s) [place] [id number] Social History Type Description Quantity Date Captured [...]
--- OUTSIDE RECORDS SUMMARY | 2024-09-06 10:11 | XMS_ITS | Clinical Summary ---
Author Organization [facility] Address [address] [place] [address] Care Team Providers Care Head Of Data Name Role Phone Unavailable Primary Care Provider Unavailabl e Encounters Date Type Department Care Team Description 08/17/2024 External Device Data [facility] ABSTRACTION Provider, Abstract 08/11/2024 External Device Data [facility] ABSTRACTION Provider, Abstract from Last 3 Months Immunizations Immunization Administration Dates Next Due INFLUENZA VACCINE HIGH DOSE TRIVALENT SPLIT VIRUS, (65 YR UP), 0.5ML (PF), IM 05/12/2024 Social History Tobacco Use Types Packs/Day Years Used Date Smoking Tobacco: Never Assessed Comments Unknown Sex and Gender Information Value Date Recorded Sex Assigned at Not on file Legal 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
== END 2024-09-06 10:01 | disposition home or self-care (01) ==
PROVIDERS: PCP Internal Medicine; Visit Provider Internal Medicine
DX: R06.09 Other forms of dyspnea (principal)
CPT/HCPCS: 93351

== ENCOUNTER 2024-10-31 09:53 | Outpatient (CLI) | payer MEDICARE, SELFPAY ==
--- NOTE | ~2024-10-31 | MM_ITS ---
EXAMINATION: MM screening [facility] BI w gabriela HISTORY: Screening TECHNIQUE: Craniocaudal and mediolateral oblique 3-D tomosynthesis images were obtained and synthetic 2-D images were generated. CAD analysis was submitted and interpreted. COMPARISON: Comparison to multiple prior studies sequentially, with oldest reviewed study dated 04/14. BREAST PARENCHYMAL COMPOSITION: Not dense: There are scattered areas of fibroglandular density. FINDINGS: There is no evidence of suspicious mass, calcification, or architectural distortion to sugg est malignancy in either breast. There has been no suspicious interval change. IMPRESSION: 1. No mammographic evidence of malignancy. 2. Recommend routine screening mammography in one year. BI-RADS Category 1: Negative Reviewed, dictated and finalized at location B.
--- OUTSIDE RECORDS SUMMARY | 2024-10-31 10:52 | XMS_ITS | Continuity of Care Document ---
Author Organization [facility] Address [address] [place] [address] [place] [address] Phone Care Team Providers Care Bottle House Pumper Name Role Phone Georgi Goodwin Unavailable Unavailable [...] Copied on Encounter Office/outpat ient Visit, Est [facility], [address] [place] [address] [address], [place], [place], [id number], [place] tel:[phone] [facility] No Information 0 Christa Laureano. [address] [facility] , [address], [place], [address], [place]. tel:[phone] Referring Provider: Tatyana [address], [place], [address]. tel:[phone] [facility], [address] [place] [address] [address], [place], [place], [id number], [place] tel:[phone] [facility] No Information 9 Christa Laureano. [address], [address], [place], [address], [place]. tel:[phone] Referring Provider: Georgi Burrell, [address], [place], [address]. tel:[phone] [facility], [address] [place] [address] [address], [place], [place], [id number], [place] tel:[phone] [facility] No Information 1200 9 Christa Laureano. [address], [address], [place], [address], [place]. tel:[phone] Referring Provider: Georgi Burrell, [address], [place], [place], [facility]. tel:[phone] [facility], [address] [place] [address] [address], [place], [place], [id number], [place] tel:[phone] [facility] No Information 1200 9 Christa Laureano. [address], [address], [place], [address], [place]. tel:[phone] [facility], [address], [place], [place], [id number], [place] tel:[phone] [facility] No Information 5200 8 Christa Laureano. [address], [address], [place], [facility], [place]. tel:[phone] Referring Provider: Tatyana [address], [place], [address]. tel:[phone] [facility], [address], [place], [place], [id number], [place] tel:[phone] [facility] No Information 7-200 8 Christa Laureano. [address], [address], [place], [address], [place]. tel:[phone] Referring Provider: Georgi Burrell, [address], [place], [address]. tel:[phone] Office/outpat ient Visit, [facility], [address], [place], [place], [id number], [place] tel:[phone] [facility] No Information Oct-2 0-200 7 Christa Laureano. [address] [facility] , [address], [place], [address], [place]. tel:[phone] Family History Family Member Type Diagnosis Age At Onset No Information Payers Payer name Insurance type Covered green party ID Authoriza tiuzma(s) [place] [id number] Social History Type Description Quantity Date Captured [...]
--- OUTSIDE RECORDS SUMMARY | 2024-10-31 10:52 | XMS_ITS | Clinical Summary ---
Author Organization 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
== END 2024-10-31 09:54 | disposition home or self-care (01) ==
LOC: ANHIMG 09:55
PROVIDERS: PCP Internal Medicine; Visit Provider Obstetrics & Gynecology
DX: Z12.31 Encounter for screening mammogram for malignant neoplasm of breast (principal)
CPT/HCPCS: 77063; 77067

== ENCOUNTER 2025-03-06 00:06 | Emergency (ER) | payer MEDICARE, SELFPAY ==
[2025-03-06] VITALS (8 sets, daily range): BP systolic 121–167; BP diastolic 49–66; PULSE 74–108; RESP 12–21; TEMP 37.4; O2SAT 90–97
--- NOTE | ~2025-03-06 | CT_ITS ---
CT of the Abdomen and Pelvis: Indication: Abdominal pain Technique: 2.5 mm axial scans were obtained through the abdomen and pelvis following intravenous adm inistration of 100 cc of Omnipaque 350. Dose reduction technique was used on this scan by utilizing a utomated exposure control and iterative reconstruction technique. The dose-length product (DLP) was 5 61.38 mGy-cm. COMPARISON: 05/04/2023 Findings: Scans through the lung bases are unremarkable. There is diffuse hepatic steatosis, with small hepatic cysts present. The spleen, pancreas, adrenals and kidneys are within normal limits. Cholecystectomy clips are present. There are atherosclerotic ca lcifications of the aorta. No lymphadenopathy. There is wall thickening or inflammatory change the distal descending colon, with underlying divertic ular disease, compatible with acute diverticulitis. Possible 1 cm intramural abscess. No free air. No bowel obstruction. Images through the pelvis were performed. Urinary bladder unremarkable. Status post hysterectomy. No pelvic mass. No ascites. Impression: Acute diverticulitis of the distal descending colon. Possible 1 cm intramural abscess. No free air or obstruction. Diffuse hepatic steatosis. Reviewed, dictated and finalized at location . Impression: Acute diverticulitis of the distal descending colon. Possible 1 cm intramural a bscess. No free air or obstruction. Diffuse hepatic steatosis.
--- NOTE | 2025-03-06 00:17 | ECG_ITS ---
Test Date: 2025-03-06 00:26:09 Measurements Intervals [place] Rate: 114 P: 68 MI: 151 QRS: 4 QRSD: 84 T: 46 QT: 284 QTc: 391 Interpretive Statements SINUS TACHYCARDIA WITH VENTRICULAR BIGEMINY VENTRICULAR COUPLETS POSSIBLE LEFT ATRIAL ENLARGEMENT INCOMPLETE RIGHT BUNDLE BRANCH BLOCK DELAYED PRECORDIAL R/S TRANSITION ABNORMAL ECG No previous ECG available for comparison Electronically Signed On 03-06-2025 07:06:17 CDT by Yifan Madison D.O.
[2025-03-06 00:49] LABS: Hematocrit 39.5 % (37.0-47.0); Hemoglobin 13.9 g/dL (12.0-15.0); Immature Granulocyte Percent A 0.2 % (0-0.5); Lymphocytes Absolute Auto 2.23 K/mm3 (0.9-3.2); Mean Corpuscular HGB Conc 35.2 g/dl (32-36); Mean Corpuscular Hemoglobin 32.1 pg (26-34); Mean Corpuscular Volume 91.2 fl (80-100); Nucleated Red Blood Cells Absolute Auto 0.000 K/mm3 (0.0-0.012); Nucleated Red Blood Cells Perc 0.0 % (0.0-0.2); Platelet Count Result 386 k/mm3 (150-375); Red Blood Count 4.33 M/mm3 (4.2-5.4); White Blood Count 13.5 K/mm3 (4.5-10.0)
[2025-03-06 00:54] LABS: Alanine Aminotransferase 24 U/L (6-35); Albumin Level 3.9 g/dL (3.5-5.1); Alkaline Phosphatase 67 U/L (38-126); Anion Gap 9 mmol/L (4-12); Aspartate Amino Transferase 33 U/L (14-36); Bilirubin,Total 0.6 mg/dL (0.2-1.3); Blood Urea Nitrogen 18 mg/dL (7-17); Calcium 9.3 mg/dL (8.4-10.2); Carbon Dioxide 23 mmol/L (22-30); Chloride 100 mmol/L (98-107); Estimated CRCL calculation 33 ml/min; Estimated Glomerular Filt Rate 47; Glucose 119 mg/dL (65-110); Lipase 78 U/L (23-300); Potassium 4.0 mmol/L (3.4-5.0); Sodium 132 mmol/L (137-145); Total Protein 7.7 g/dL (6.3-8.2)
--- NOTE | 2025-03-06 01:12 | ED.ABDPAIN ---
HPI - Abdominal Pain General Chief Complaint: Abdominal Pain Stated Complaint: Abd pain x 1 week Time Seen by Provider: 03/06/25 01:01 History of Present Illness HPI narrative: 79-year-old female with history of diverticulitis and cholecystectomy. She presents to the emergency room with left lower quadrant intermittent abdominal pain for last 2 weeks she has had a decrease in appetite and some mild nauseousness without vomiting. No constipation states that she has chronic diarrhea. She also has a history of ventricular bigeminy which is chronically seen and her physicians are not concern for this. Patient is not any blood thinner medications. Symptoms intermittent for last 2 weeks and she was trying to get to her doctor's appointment next week but was not able to get to it secondary to pain. She presents today with left lower quadrant isolated pain intermittent in nature and sharp in sensation with some associated nausea without vomiting. No measurable fever, no chest pain or difficulty in breathing. She was otherwise in her normal state of health. No traumatic injuries. States this feels very similar to her previous diverticulitis episodes that were treated with ciprofloxacin without any other additional agents per her recollection. Related Data Home Medications ?Medication ?Instructions ?Recorded ?Confirmed ?Last Taken ?Type aspirin 81 mg tablet,delayed 81 mg PO Q48H 08/15/19 12/21/24 02/02/20 21:00 History release (Adult Low Dose Aspirin) loratadine 10 mg tablet (Claritin) 10 mg PO DAILY PRN Allergy Symptoms 08/15/19 12/21/24 Unknown History cholecalciferol (vitamin D3) 25 2,000 unit PO DAILY 07/03/21 12/21/24 Unknown History mcg (1,000 unit) tablet (Vitamin D3) Allergies Allergy/AdvReac Type Severity Reaction Status Date / Time loracarbef Allergy Severe Swelling Verified 03/06/25 00:15 of Lip/Tongue/Throat meperidine Allergy Severe Anaphylaxis Verified 03/06/25 00:15 carbamazepine Allergy Intermediate Rash Verified 03/06/25 00:15 codeine Allergy Intermediate Palpitation Verified 03/06/25 00:15 s Penicillins Allergy Intermediate Hives Verified 03/06/25 00:15 allopurinol Allergy Mild Rash Verified 03/06/25 00:15 cephalexin Allergy Unknown Unknown Verified 03/06/25 00:15 clotrimazole Allergy Unknown Unknown Verified 03/06/25 00:15 doxycycline Allergy Unknown Unknown Verified 03/06/25 00:15 febuxostat Allergy Unknown Unknown Verified 03/06/25 00:15 Sulfa (Sulfonamide Allergy Unknown Hives Verified 03/06/25 00:15 Antibiotics) tetracycline Allergy Unknown Hives Verified 03/06/25 00:15 Review of Systems Review of Systems: As reviewed above in HPI [facility] Past Medical History Medical History Impacted cerumen of right ear Decreased hearing of right ear Chronic GERD Diverticular disease PVC's (premature ventricular contractions) Anxiety disorder, unspecified Essential (primary) hypertension Gastro-esophageal reflux disease without esophagitis Gout, unspecified Allergic to most gout medicine and can only take steroids. Hyperglycemia Elevated LFTs Other fatigue Pure hypercholesterolemia, unspecified ROMEO (dyspnea on exertion) Surgical History Surgical History H/O cataract extraction Bilaterally S/P tonsillectomy and adenoidectomy History of removal of pigmented skin lesion H/O: hysterectomy Total vaginal hysterectomy Hx of cholecystectomy Family History Family History Mother Patient's mother is Cerebrovascular accident Hypertension Aneurysm Father Patient's father is Hypertension Sibling Hypertension 2 sisters Family history of diabetes mellitus in first degree relative 1 sister Sibling Diabetes mellitus Social History Social History Social History: The patient is x3. She desires to be a full code. Her daughter Magaly Duckworth is her durable power defense attorney for healthcare. 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 The patient used to smoke and quit 1977. She denies using any marijuana or illicit drugs. But she does have a glass or 2 of wine every day. Caffeine- coffee daily Smoking packs per day: 0.5 Smoking cigarettes per day: 10.0 Years smoked: 15 Smoking pack-years: 7.50 Smoking status: Former smoker Tobacco type: cigarettes Second hand tobacco smoke exposure: Yes Smoking end date: 07/20/77 Alcohol intake: current Drinks per week: 14 Alcohol use details: Wine Substance use: never Substance use type: does not use Do You Feel Safe in your Home?: Yes Lack of Transportation: No Lack of Food: Never True Current Housing: I Have Housing Concerned About Future Housing: No Difficulty Paying Gas/Electric Bills: No Difficulty Paying for Meds: No Currently Unemployed: No Education: High School Diploma/GED Difficulty w/ Childcare or Family Care: No Living arrangements: alone Occupation/Education: retired 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 Mucous membranes dry. NECK: Supple. CHEST: [Clear to auscultation. No respiratory distress.] HEART: [Regular rate and rhythm]. No murmur heard. [Normal peripheral pulses.] ABDOMEN: Soft, left lower quadrant tenderness to palpation with some mild distension without rigidity or guarding, no peritonitis EXTREMITIES: Normal range of motion. [No edema.] SKIN: Warm, dry, no rash. NEURO: [No focal deficits]. Alert and oriented [x3.] PSYCH: [Normal mood and affect.] Course Vital Signs Vital signs: Vital Signs Temperature 37.4 C 03/06/25 00:09 Pulse Rate 108 H 03/06/25 00:09 Respiratory Rate 16 03/06/25 00:09 Blood Pressure 167/58 H 03/06/25 00:09 Pulse Oximetry 93 03/06/25 00:09 Oxygen Delivery Room Air 03/06/25 00:09 Temperature 37.4 C 03/06/25 00:09 Pulse Rate 80 03/06/25 04:16 Respiratory Rate 21 H 03/06/25 04:16 Blood Pressure 144/55 H 03/06/25 04:16 Pulse Oximetry 93 03/06/25 04:16 Oxygen Delivery Room Air 03/06/25 00:09 MDM - Abdominal Pain MDM Narrative Medical decision making narrative: 79-year-old female with history of diverticulitis and cholecystectomy. She presents to the emergency room with left lower quadrant intermittent abdominal pain for last 2 weeks she has had a decrease in appetite and some mild nauseousness without vomiting. No constipation states that she has chronic diarrhea. She also has a history of ventricular bigeminy which is chronically seen and her physicians are not concern for this. Patient is not any blood thinner medications. Symptoms intermittent for last 2 weeks and she was trying to get to her doctor's appointment next week but was not able to get to it secondary to pain. She presents today with left lower quadrant isolated pain intermittent in nature and sharp in sensation with some associated nausea without vomiting. No measurable fever, no chest pain or difficulty in breathing. She was otherwise in her normal state of health. No traumatic injuries. States this feels very similar to her previous diverticulitis episodes that were treated with ciprofloxacin without any other additional agents per her recollection. Clinical exam with left lower quadrant tenderness to palpation without any rigidity or guarding. Mildly distended abdomen. Patient is uncomfortable appearing but not in any acute physical or respiratory distress. Mildly tachycardic but afebrile here. Clinical concern for diverticulitis given her historical features with potential suspicion for perforation given the duration of symptoms and mild distension. Other etiology such as gastroenteritis, gastritis, stercoral colitis, bowel obstruction or impaction possible. Laboratory studies obtained, she was given a L of fluid, morphine for pain. CT scan abdomen pelvis and IV contrast obtained. EKG ordered confirming ventricular bigeminy which is chronic for the patient without any new ST segment concerns or new ectopy. CT finding shows left-sided non perforated diverticulitis. Patient is hemodynamically stable and her symptoms are controlled. She is ambulating without discomfort. Given a dose of ciprofloxacin and Flagyl in be sent home with prescriptions for both. She was given return precautions and safe for discharge. Prior to discharge patient expressed that she did not want the IV ciprofloxacin and did not want to Flagyl as she is sensitive to medications. She wanted 2 tablets of the smaller ciprofloxacin as she has trouble swallowing. She was given the oral doses here and prescription sent to her pharmacy. Safe for discharge. Given return precautions. Medical Records Attestation: I reviewed the patient's medical records. Lab Data Attestation: I reviewed the patient's lab results. 03/06/25 00:30 03/06/25 00:30 Labs: Lab Results 03/06/25 03/06/25 Range/Units 00:30 01:36 WBC 13.5 H (4.5-10.0) K/mm3 RBC 4.33 (4.2-5.4) M/mm3 Hgb 13.9 (12.0-15.0) g/dL Hct 39.5 (37.0-47.0) % MCV 91.2 (80-100) fl MCH 32.1 (26-34) pg MCHC 35.2 (32-36) g/dl RDW 11.8 (11.5-14.5) % Plt Count 386 H (150-375) k/mm3 MPV 9.9 (7.4-10.4) fl Immature Gran % (Auto) 0.2 (0-0.5) % Neut % (Auto) 69.7 (45.5-73.1) % Lymph % (Auto) 16.5 L (18.3-44.2) % [place] % (Auto) 11.2 H (2.6-8.5) % Eos % (Auto) 1.7 (0-4.4) % Baso % (Auto) 0.7 (0.2-1.2) % Lymph # (Auto) 2.23 (0.9-3.2) K/mm3 [place] # (Auto) 1.5 H (0.1-0.6) K/mm3 Eos # (Auto) 0.2 (0-0.3) K/mm3 Baso # (Auto) 0.1 (0.0-0.1) K/mm3 Abs Immat Gran (auto) 0.03 (0.00-0.031) K/mm3 Absolute Neuts (auto) 9.4 H (1.3-6.7) K/mm3 Absolute Nucleated RBC 0.000 (0.0-0.012) K/mm3 Nucleated RBC % 0.0 (0.0-0.2) % Sodium 132 L (137-145) mmol/L Potassium 4.0 (3.4-5.0) mmol/L Chloride 100 (98-107) mmol/L Carbon Dioxide 23 (22-30) mmol/L Anion Gap 9 (4-12) mmol/L BUN 18 H (7-17) mg/dL Creatinine 1.12 H (0.7-1.0) mg/dL Estim Creat Clear Calc 33 ml/min Estimated GFR 47 L (59 - ) Glucose 119 H (65-110) mg/dL Calcium 9.3 (8.4-10.2) mg/dL Total Bilirubin 0.6 (0.2-1.3) mg/dL AST 33 (14-36) U/L ALT 24 (6-35) U/L Alkaline Phosphatase 67 (38-126) U/L Total Protein 7.7 (6.3-8.2) g/dL Albumin 3.9 (3.5-5.1) g/dL Lipase 78 (23-300) U/L Urine Color Yellow (Yellow) Urine Appearance Clear (Clear) Urine pH 7.0 (5.0-9.0) Ur Specific [place] 1.013 (1.001-1.035) Urine Protein Negative (Negative) mg/dL Urine Glucose (UA) Negative (Negative) mg/dL Urine Ketones Negative (Negative) mg/dL Ur Blood (Man) Negative (Negative) Urine Nitrate Negative (Negative) Urine Bilirubin Negative (Negative) Urine Urobilinogen 0.2 (<2.0) mg/dL Leukocyte Esterase Rfl 2+ H (Negative) JAG/UL Urine RBC 0-2 (0-2) /hpf Urine WBC 21-50 H (0-3) /hpf Ur Squamous Epith Cells Few (Few) /hpf Urine Bacteria None seen /hpf Urine Casts 0-2 Imaging Data Attestation: I personally reviewed and interpreted this imaging study as follows: My impression: Non perforated diverticulitis Discharge Plan Discharge Clinical Impression: Diverticulitis Patient Disposition: Home Condition: Stable Instructions: Antibiotic Form, Diverticulitis (DC) Additional Instructions: You have a non perforated diverticulitis without any complication. Will prescribe 2 different antibiotics that you do not have any allergies to that can help take care of this infection. Return with any worsening symptoms, new pain, fevers, intractable nausea, vomiting or any other emergent issues. Follow-up with regular doctor and return with any concerns. Patient Language: Kuwaiti Prescriptions: New ciprofloxacin HCl [Cipro] 250 mg tablet 500 mg PO Q12H 10 Days Qty: 40 0RF No Action aspirin [Adult Low Dose Aspirin] 81 mg tablet,delayed release (DR/EC) 81 mg PO Q48H loratadine [Claritin] 10 mg tablet 10 mg PO DAILY PRN (Reason: Allergy Symptoms) cholecalciferol (vitamin D3) [Vitamin D3] 25 mcg (1,000 unit) tablet 2,000 unit PO DAILY escitalopram oxalate 10 mg tablet 10 mg PO DAILY Qty: 90 2RF omeprazole 40 mg capsule,delayed release(DR/EC) 40 mg PO DAILY Qty: 90 1RF clonazepam [Klonopin] 1 mg tablet 1 mg PO .COMPLEX PRN (Reason: anxiety) Qty: 60 0RF Rx Instructions: One po at HS; 1/2 tab during day as needed folic acid 1 mg tablet 1 mg PO DAILY Qty: 90 2RF ciprofloxacin HCl [Cipro] 250 mg tablet 250 mg PO Q12H Qty: 14 0RF lisinopril 40 mg tablet 40 mg PO DAILY Qty: 90 3RF Follow-up/Referrals: John Mariee DO [Primary Care Provider] - Time of Disposition: 05:10
--- OUTSIDE RECORDS SUMMARY | 2025-03-06 01:28 | XMS_ITS | Continuity of Care Document ---
Author Organization [facility] Address [address] [place] [address] [place] [address] Phone Care Team Providers Care Lead Man Over All Dies In Pattern [employer] Name Role Phone Georgi Goodwin Unavailable Unavailable [...] Copied on Encounter Office/outpat ient Visit, Est [facility], [address] [place] [address] [address], [place], [place], [id number], [place] tel:[phone] [facility] No Information 0 Christa Lauraeno. Tatyana [facility] , [address], [place], [address], [place]. tel:[phone] Referring Provider: Tatyana [employer] [address], [place], [address]. tel:[phone] [facility], [address] [place] [address] [address], [place], [place], [id number], [place] tel:[phone] [facility] No Information 9 Christa Laureano. [address], [address], [place], [address], [place]. tel:[phone] Referring Provider: Georgi Burrell, [address], [place], [address]. tel:[phone] [facility] Eye [facility], [address] [place] [address] [address], [place], [place], [id number], [place] tel:[phone] [facility] No Information 1200 9 Christa Laureano. [address], [address], [place], [address], [place]. tel:[phone] Referring Provider: Georgi Burrell, [address], [place], [place], [facility]. tel:[phone] [facility] Eye [facility], [address] [place] [address] [address], [place], [place], [id number], [place] tel:[phone] [facility] No Information 1200 9 Christa Laureano. [address], [address], [place], [address], [place]. tel:[phone] [facility] Eye [facility], [address], [place], [place], [id number], [place] tel:[phone] [facility] No Information 5200 8 Christa Laureano. [address], [address], [place], [place], [facility], [place]. tel:[phone] Referring Provider: Tatyana [address], [place], [address]. tel:[phone] [facility] Eye [facility], [address], [place], [place], [id number], [place] tel:[phone] [facility] No Information 7-200 8 Christa Laureano. [address], [address], [place], [address], [place]. tel:[phone] Referring Provider: Georgi Burrell, [address], [place], [address]. tel:[phone] Office/outpat ient Visit, [facility], [address], [place], [place], [id number], [place] tel:[phone] [facility] No Information Oct-2 0-200 7 Christa Laureano. [address] [facility] , [address], [place], [address], [place]. tel:[phone] Family History Family Member Type Diagnosis Age At Onset No Information Payers Payer name Insurance type Covered republican ID Authoriza tiuzma(s) [place] [id number] Social History Type Description Quantity Date Captured [...]
--- OUTSIDE RECORDS SUMMARY | 2025-03-06 01:28 | XMS_ITS | Clinical Summary ---
Author Organization [facility] Address [address] [place] [address] Care Team Providers Care Metal Buildings Assembler Name Role Phone Unavailable Primary Care Provider Unavailabl e Encounters Date Type Department Care Team Description 02/22/2025 External Device Data [facility] ABSTRACTION Provider, Abstract 02/01/2025 External Device Data [facility] ABSTRACTION Provider, Abstract 02/01/2025 External Device Data [facility] ABSTRACTION Provider, Abstract 02/01/2025 External Device Data [facility] ABSTRACTION Provider, Abstract 01/04/2025 External Device Data [facility] ABSTRACTION Provider, Abstract 01/04/2025 External Device Data [facility] ABSTRACTION Provider, Abstract 12/13/2024 External Device Data [facility] ABSTRACTION Provider, Abstract 12/08/2024 External Device Data [facility] ABSTRACTION Provider, Abstract 12/07/2024 External Device Data [facility] ABSTRACTION Provider, Abstract [...] on file 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
[2025-03-06] MEDS: MORPHINE SULFATE (*CRX) 2 MG/ML INJ IV PUSH (01:37)
[2025-03-06] MEDS: LACTATED RINGERS 1,000 ML 999 ML IV CONT (01:37)
[2025-03-06 01:56] LABS: Add Urine Microscopic? YES; Appearance Urine Clear (Clear); Glucose Urine UA Negative (Negative); Leukocyte Esterase Ur 2+ LEU/UL (Negative); Nitrate Urine Negative (Negative); Non Pathogenic Casts 0-2; Specific Grav Ur 1.013 (1.001-1.035)
[2025-03-06] MEDS: CIPROFLOXACIN 400 MG/D5W 200ML 200 ML 200 MG IVPB (05:48)
[2025-03-06] MEDS: CIPROFLOXACIN 500 MG TAB PO (06:09)
== END 2025-03-06 06:23 | disposition home or self-care (01) ==
PROVIDERS: Physician Assistant; Emergency Provider Student in an Organized Health Care Education/Training Program; PCP Internal Medicine
DX: K57.32 Diverticulitis of large intestine without perforation or abscess without bleeding (principal); I10 Essential (primary) hypertension; E78.00 Pure hypercholesterolemia, unspecified; K21.9 Gastro-esophageal reflux disease without esophagitis; M10.9 Gout, unspecified; R00.8 Other abnormalities of heart beat; F41.9 Anxiety disorder, unspecified; Z87.891 Personal history of nicotine dependence; Z90.49 Acquired absence of other specified parts of digestive tract; Z90.710 Acquired absence of both cervix and uterus; Z98.42 Cataract extraction status, left eye; Z98.41 Cataract extraction status, right eye; Z79.82 Long term (current) use of aspirin; Z79.899 Other long term (current) drug therapy; K76.0 Fatty (change of) liver, not elsewhere classified; R00.0 Tachycardia, unspecified; R94.31 Abnormal electrocardiogram [ECG] [EKG]
CPT/HCPCS: 36415; 74177; 80053; 81001; 83690; 85025; 87086; 93005; 96361; 96365; 96375; 99284; A9270; J0744; J1200; J2270; J7120; Q9967

== ENCOUNTER 2025-04-07 10:32 | Outpatient (CLI) | payer MEDICARE, SELFPAY ==
--- OUTSIDE RECORDS SUMMARY | 2025-04-07 10:35 | XMS_ITS | Clinical Summary ---
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
--- NOTE | 2025-04-14 12:20 | P.PCNHOL_ITS ---
Holter/Event Monitor Holter/Event Monitor Date of procedure: 04/07/25 Holter/Event Procedure: 3-7 Day Holter Monitor Indications: Bradycardia Conclusion: 1. 3 days holter monitor on 04/07/25. 2. Predominant rhythm is sinus rhythm. HR range 67-235 bpm; average HR 89 bpm. 3. There are rare premature supraventricular complexes, rare supraventricular couplets. No supraventricular tachycardia. 4. There are frequent premature ventricular complexes at 18.4% burden, occasional ventricular couplets and rare ventricular triplets, and longest ventricular bigeminy is 14 minutes and 34 seconds, and longest ventricular trig eminy is 6 minutes and 44 seconds. There are 30 episodes of ventricular tachycardia with fastest at 235 bpm and longest lasting 7 beats. 5. No significant pauses greater than 3 seconds. 6. No symptoms available for correlation.
== END 2025-04-07 10:33 | disposition home or self-care (01) ==
PROVIDERS: PCP Internal Medicine; Visit Provider Internal Medicine
DX: I49.8 Other specified cardiac arrhythmias (principal)
CPT/HCPCS: 93242

== ENCOUNTER 2025-06-02 09:37 | Outpatient (CLI) | payer MEDICARE, SELFPAY ==
--- OUTSIDE RECORDS SUMMARY | 2009-09-10 04:45 | XMS_ITS | Continuity of Care Document ---
Author Organization [facility] Address [address] [place] [address] [place] [address] Phone Care Team Providers Care Pivot End Polisher Name Role Phone Georgi Goodwin Unavailable Unavailable Procedures Procedure Date Office/outpatient Visit, Est Fundus Photography W/ Report Optic Nerve Topography-Professional Optic Nerve Topography-Professional Optic Nerve Topography Optic Nerve Topography Eye Exam & Treatment Visual Field Examination(s) Eye Exam & Treatment Fundus Photography W/ Report Refraction Office/outpatient Visit, Est Advance Directives Directive Yes / No Effective Date File Name No Information Encounters Encounter Description Practice Location Reason(s) For Visit Diagnoses Date Provider Providers Copied on Encounter Office/outpat ient Visit, Est [facility], [address] [place] [address] [address], [place], [place], [id number], [place] tel:[phone] [facility] No Information 0 Christa Laureano. Tatyana [facility] , [address], [place], [address], [place]. tel:[phone] Referring Provider: Tatyana [employer] [address], [place], [address]. tel:[phone] [facility], [address] [place] [address] [address], [place], [place], [id number], [place] tel:[phone] [facility] No Information 9 Christa Laureano. [address], [address], [place], [address], [place]. tel:[phone] Referring Provider: Georgi Burrell, [address], [place], [address]. tel:[phone] [facility], [address] [place] [address] [address], [place], [place], [id number], [place] tel:[phone] [facility] No Information 1200 9 Christa Laureano. [address], [address], [place], [address], [place]. tel:[phone] Referring Provider: Georgi Burrell, [address], [place], [place], [facility]. tel:[phone] [facility], [address] [place] [address] [address], [place], [place], [id number], [place] tel:[phone] [facility] No Information 1200 9 Christa Laureano. [address], [address], [place], [address], [place]. tel:[phone] [facility], [address], [place], [place], [id number], [place] tel:[phone] [facility] No Information 5200 8 Christa Laureano. Taty[address], [address], [place], [place], [facility], [place]. tel:[phone] Referring Provider: Tatyana [address], [place], [address]. tel:[phone] [facility], [address], [place], [place], [id number], [place] tel:[phone] [facility] No Information 7-200 8 Christa Laureano. [address], [address], [place], [address], [place]. tel:[phone] Referring Provider: Georgi Burrell, [address], [place], [address]. tel:[phone] Office/outpat ient Visit, [facility], [address], [place], [place], [id number], [place] tel:[phone] [facility] No Information Oct-2 0-200 7 Christa Laureano. [address] [facility] , [address], [place], [address], [place]. tel:[phone] Family History Family Member Type Diagnosis Age At Onset No Information Payers Payer name Insurance type Covered green party ID Authoriza tiuzma(s) [place] [id number] Social History Type Description Quantity Date Captured Comments Sex Female Smoking Status No Information Chief Complaint And Reason For Visit No Information Reason For Referral Reason For Referral No Information History Of Present Illness Encounter Date Complaint History Of Prese nt Illness No Information Functional Status Date Functional Assessmen t No Information Instructions Date Instruction Additional Infor mation No Information Assessments Type Assessment Date No Information Patient Care Teams Name Effective Dates (start - stop) Status Members No Information
--- NOTE | 2025-06-02 09:50 | ECHO_ITS ---
Patient Info Name: Marisabel Beck Age: 79 years : 1945 Gender: Female Ht: 63 in Wt: 153 lbs BSA: 1.77 m2 HR: 72 bpm BP: 142 / 86 mmHg Technical Quality: Good Exam Date: 06/02/2025 9:59 AM Patient Status: O Admit Date: 06/02/2025 Exam Type: CA echo doppler color flow Complete two-dimensional, color flow and Doppler transthoracic echocardiogram is performed. Global Sales Executive: Marcelle Veras Attending Provider: Yifan Madison DO Summary 1. Complete two-dimensional, color flow and Doppler transthoracic echocardiogram is performed. 2. Left ventricular chamber dimension is normal. 3. Left ventricular systolic function is normal, estimated at 55-60. 4. The left ventricular diastolic function is grade I diastolic dysfunction. 5. E/e' 15 is elevated. 6. Left atrial chamber dimension is mildly enlarged. 7. There is trace mitral valve regurgitation. 8. There is trace tricuspid valve regurgitation. 9. Mild pulmonary hypertension, estimated pulmonary arterial systolic pressure is 46 mmHg. Left Ventricle E/e' 15 is elevated. Left ventricular chamber dimension is normal. Left ventricular systolic function is normal, estimated at 55-60. The left ventricular diastolic function is grade I diastolic dysfunction. Right Ventricle Right ventricular chamber dimension is normal. Right ventricular systolic function is normal and with normal TAPSE 2.0 cm. Left Atria Left atrial chamber dimension is mildly enlarged. Right Atria Right atrial chamber dimension is normal. Aortic Valve The aortic valve is trileaflet. There is no aortic valve stenosis. There is no aortic valve regurgitation. Pulmonic Valve There is no pulmonic regurgitation. Mitral Valve There is no mitral valve stenosis. There is trace mitral valve regurgitation. Tricuspid Valve There is trace tricuspid valve regurgitation. Mild pulmonary hypertension, estimated pulmonary arterial systolic pressure is 46 mmHg. Pericardium/Pleural There is no pericardial effusion. Inferior Vena Cava Normal inferior vena cava with >50% collapse upon inspiration consistent with normal right atrial pressure, 5 mmHg. Aorta The aortic root size at the sinus of Valsalva is normal. Left Ventricular Outflow Tract Name Value Normal LVOT 2D LVOT Diameter 1.9 cm LVOT Doppler LVOT Peak Velocity 97 cm/s LVOT Peak Gradient 4 mmHg LVOT Mean Gradient 2 mmHg LVOT VTI 24 cm LVOT Stroke Volume 71 ml LVOT CO 5.1 l/min LVOT CI 2.9 l/min/m2 Pulmonic Valve Name Value Normal RVOT Doppler RVOT Peak Velocity 70 cm/s RVOT Peak Gradient 2 mmHg PV Doppler PV Peak Velocity 89 cm/s PV Peak Gradient 3 mmHg Mitral Valve Name Value Normal MV Diastolic Function MV E Peak Velocity 81 cm/s MV A Peak Velocity 114 cm/s MV E/A 0.7 MV Decel Time (PW) 276 ms MV Annular TDI MV E/e' (Septal) 16.1 MV E/e' (Lateral) 14.7 MV E/e' (Average) 15.4 Tricuspid Valve Name Value Normal TV Regurgitation Doppler TR Peak Velocity 320 cm/s TR Peak Gradient 41 mmHg Estimated PAP/RSVP RA Pressure 5 mmHg <=5 PA Systolic Pressure 46 mmHg <36 RV Systolic Pressure 46 mmHg <36 Aortic Valve Name Value Normal AV Doppler AV Peak Velocity 114 cm/s AV Peak Gradient 5 mmHg AV Area (Cont Eq Saul) 2.5 cm2 AV DI (Saul) 0.85 AV Regurgitation 2D LVOT Area 2.9 cm2 Ventricles Name Value Normal LV Dimensions 2D/MM IVS Diastolic Thickness (2D) 0.6 cm 0.6-1.0 LVID Diastole (2D) 4.3 cm 3.8-5.2 LVIW Diastolic Thickness (2D) 1.2 cm 0.6-0.9 LVID Systole (2D) 3.0 cm 2.2-3.5 LVOT Diameter 1.9 cm LV Mass (2D Cubed) 123.96 g 67.00-162.00 LV Mass Index (2D Cubed) 70 g/m2 43-95 Relative Wall Thickness (2D) 0.55 <=0.42 LV Fractional Shortening/Ejection Fraction 2D/MM LV Fractional Shortening (2D) 32 % 27-45 LV EF (2D Teichholz) 60 % LV Diastolic Volume (4C MOD) 81 ml LV EF (4C MOD) 55 % LV Diastolic Volume (2C MOD) 72 ml LV EF (2C MOD) 71 % LV Diastolic Volume (BP MOD) 77 ml 46-106 LV Diastolic Volume Index (BP MOD) 44 ml/m2 29-61 LV Systolic Volume (BP MOD) 28 ml 14-42 LV Systolic Volume Index (BP MOD) 16 ml/m2 8-24 LV EF (BP MOD) 64 % 54-74 LV Diastolic Length (4C) 7.3 cm LV Systolic Length (4C) 6.7 cm LV Stroke Volume (4C MOD) 45 ml Atria Name Value Normal LA Dimensions LA Volume (4C A-L) 27 ml LA Volume (BP A-L) 31 ml RA Dimensions RA Systolic Major Bogata Length (4C) 4.4 cm 2.2-2.8 RA Area (4C) 9.5 cm2 <=18.0 Report Signatures
--- OUTSIDE RECORDS SUMMARY | 2025-06-02 10:41 | XMS_ITS | Clinical Summary ---
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
== END 2025-06-02 09:38 | disposition home or self-care (01) ==
PROVIDERS: PCP Family Medicine; Visit Provider Internal Medicine Cardiovascular Disease
DX: I49.3 Ventricular premature depolarization (principal); I08.3 Combined rheumatic disorders of mitral, aortic and tricuspid valves
CPT/HCPCS: 93306